=== PATIENT | female | born 1995 | race Caucasian/White ===

== ENCOUNTER 2022-08-06 10:07 | Emergency (ER) | payer OTHER ==
--- NOTE | 2022-08-06 10:09 | ERPHSYRPT ---
- History of Present Illness Time Seen by Provider: 08/06/22 10:08 Historian: patient Exam Limitations: no limitations Physician History: This is a 27-year-old white female who is approximately 16 weeks with a single live intrauterine and presents with epigastric discomfort and burning sensation. She ate spicy foods last evening. She has not had her gallbladder out. She has been vomiting as well. Her pain is in the epigastric area which does radiate into her back. She does have some bloating symptoms. She has not had any vaginal bleeding or rectal bleeding. She has no chest pain and she has no shortness of breath. Timing/Duration: today Activities at Onset: none Quality: burning Abdominal Pain Onset Location: epigastric Pain Radiation: back Severity of Pain-Max: mild Severity of Pain-Current: mild Modifying Factors: Improves With: vomiting Associated Symptoms: nausea, vomiting, No chest pain, No diarrhea, No fever/chills, No headache, No shortness of breath Previous symptoms: no prior history Allergies/Adverse Reactions: No Known Drug Allergies Allergy (Verified 08/06/22 10:19) Travel Risk - International Travel Have you traveled outside of the country in past 3 weeks: No - Coronavirus Screening Are you exhibiting any of the following symptoms?: No Close contact with a COVID-19 positive Pt in past 14-21 Days: No - Review of Systems Constitutional: No Symptoms Eyes: No Symptoms Ears, Nose, & Throat: No Symptoms Respiratory: No Symptoms Cardiac: No Symptoms Abdominal/Gastrointestinal: Abdominal Pain, Nausea, Vomiting, No Diarrhea, No Constipation Genitourinary Symptoms: No Symptoms Musculoskeletal: No Symptoms Skin: No Symptoms Neurological: No Symptoms Psychological: No Symptoms Endocrine: No Symptoms Hematologic/Lymphatic: No Symptoms Immunological/Allergic: No Symptoms All Other Systems: Reviewed and Negative - Past Medical History Neurological History: No Pertinent History Cardiac History: No Pertinent History Respiratory History: No Pertinent History Endocrine Medical History: No Pertinent History Musculoskeletal History: No Pertinent History - Nursing Vital Signs Nursing Vital Signs: Initial Vital Signs Temperature 96.9 F 08/06/22 10:19 Pulse Rate 82 08/06/22 10:19 Respiratory Rate 18 08/06/22 10:19 Blood Pressure 113/55 08/06/22 10:19 O2 Sat by Pulse Oximetry 96 08/06/22 10:19 Pain Scale Pain Intensity 4 - Physical Exam General Appearance: no apparent distress, alert, anxiety, thin Eye Exam: PERRL/EOMI, eyes nml inspection Ears, Nose, Throat Exam: normal ENT inspection, moist mucous membranes Neck Exam: normal inspection, non-tender, supple, full range of motion Respiratory Exam: normal breath sounds, lungs clear, airway intact, No chest tenderness, No respiratory distress Cardiovascular Exam: regular rate/rhythm, normal heart sounds, normal peripheral pulses Gastrointestinal/Abdomen Exam: soft, normal bowel sounds, No tenderness, No guarding, No rebound Pelvic Exam: not done Rectal Exam: not done Back Exam: normal inspection, normal range of motion, No CVA tenderness, No vertebral tenderness Extremity Exam: normal inspection, normal range of motion, pelvis stable Neurologic Exam: alert, oriented x 3, cooperative, 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, normal mood/affect, nml cerebellar function, nml station & gait, sensation nml Skin Exam: normal color, warm, dry Lymphatic Exam: No adenopathy SpO2 Interpretation: normal O2 Delivery: Room Air - Course Nursing assessment & vital signs reviewed: Yes Ordered Tests: Active Orders 24 hr Category Date Time Status IV Insertion STAT Care 08/06/22 10:25 Active AMYLASE Stat Lab 08/06/22 10:40 Received CBC W DIFF Stat Lab 08/06/22 10:40 Completed CMP Stat Lab 08/06/22 10:40 Received CULTURE,URINE Stat Lab 08/06/22 10:45 Received LIPASE Stat Lab 08/06/22 10:40 Received UA W/RFX CULTURE Stat Lab 08/06/22 10:45 Completed Medication Summary Discontinued Medications Generic Name Dose Route Start Last Admin Trade Name Arnold PRN Reason Stop Dose Admin Sodium Chloride 1,000 mls @ 999 mls/hr 08/06/22 10:25 08/06/22 11:50 Sodium Chloride 0.9% 1000 Ml IV 08/06/22 11:25 Infused .Q1H1M STA Infusion Sodium Chloride Confirm 08/06/22 10:44 Sodium Chloride 0.9% 1000 Ml Administered 08/06/22 10:45 Dose 1,000 mls @ ud .ROUTE .STK-MED ONE Ceftriaxone Sodium/Dextrose 1 g in 50 mls @ 100 mls/hr 08/06/22 11:08 08/06/22 11:50 Rocephin 1 Gm-D5w 50 Ml Bag IV 08/06/22 11:37 Infused STAT STA Infusion Ceftriaxone Sodium/Dextrose Confirm 08/06/22 11:13 Rocephin 1 Gm-D5w 50 Ml Bag Administered 08/06/22 11:14 Dose 1 g in 50 mls @ ud IV .STK-MED ONE Ondansetron HCl 4 mg 08/06/22 10:25 08/06/22 10:45 Ondansetron Hcl 4 Mg/2 Ml Vial IV 08/06/22 10:26 4 mg STAT ONE Administration Ondansetron HCl Confirm 08/06/22 10:44 Ondansetron Hcl 4 Mg/2 Ml Vial Administered 08/06/22 10:45 Dose 4 mg .ROUTE .STK-MED ONE Lab/Rad Data: Laboratory Result Diagrams 08/06/22 10:40 08/06/22 11:37 Laboratory Results 08/06/22 08/06/22 08/06/22 Range/Units 11:37 10:45 10:40 WBC 11.1 H (4.0-10.5) x10^3/uL RBC 4.18 (4.1-5.4) x10^6/uL Hgb 12.4 (12.0-16.0) g/dL Hct 36.3 (35-47) % MCV 86.8 (78-100) fL MCH 29.7 (26-32) pg MCHC 34.2 (32-36) g/dL RDW 12.4 (11.5-14.0) % Plt Count 231 (150-450) x10^3/uL MPV 10.6 (7.5-11.0) fL Gran % 71.2 H (36.0-66.0) % Immature Gran % (Auto) 0.3 (0.00-0.4) % Nucleat RBC Rel Count 0.0 (0.00-0.1) % Eos # (Auto) 0.04 (0-0.5) x10^3/uL Immature Gran # (Auto) 0.03 (0.00-0.03) x10^3u/L Absolute Lymphs (auto) 2.29 (1.0-4.6) x10^3/uL Absolute Monos (auto) 0.81 (0.0-1.3) x10^3/uL Absolute Nucleated RBC 0.00 (0.00-0.01) x10^3u/L Lymphocytes % 20.6 L (24.0-44.0) % Monocytes % 7.3 (0.0-12.0) % Eosinophils % 0.4 (0.00-5.0) % Basophils % 0.2 (0.0-0.4) % Absolute Granulocytes 7.95 H (1.4-6.9) x10^3/uL Basophils # 0.02 (0-0.4) x10^3/uL Sodium Direct 136 L (138-146) mmol/L Potassium 3.9 (3.5-4.9) mmol/L Chloride 105 (98-109) mmol/L Carbon Dioxide 23 L (24-29) mmol/L Venous BUN 6 L (8-26) mg/dL Creatinine 0.4 L (0.6-1.3) mg/dL Glucose 96 (70-105) mg/dL Ionized Calcium 1.23 (1.12-1.32) mmol/L Urinalys Dipstick Clnc MAIN LAB Urine Color LT.YELLOW (YELLOW) Urine Appearance HAZY (CLEAR) Urine pH 7.5 (5-6) Ur Specific [place] 1.020 (1.005-1.025) POC Urine Protein Conf NEGATIVE (Negative) Urine Ketones NEGATIVE (NEGATIVE) Urine Nitrite NEGATIVE (NEGATIVE) Urine Bilirubin NEGATIVE (NEGATIVE) Urine Urobilinogen 0.2 (0-1) mg/dL Urine Leukocytes TRACE (NEGATIVE) Urine WBC (Auto) 6-10 (0-5) /HPF Urine RBC (Auto) 0-2 (0-2) /HPF U Epithel Cells (Auto) FEW (FEW) /HPF Urine Bacteria (Auto) FEW (NEGATIVE) /HPF Urine RBC NEGATIVE (0-5) Hector/ul Unidentified Crystals 25-50 (NEGATIVE) /HPF Other Casts (Auto) 2-5 (NEGATIVE) /LPF Urine Mucus (Auto) SLIGHT (NEGATIVE) /HPF Urine Yeast (Budding) Occasional (NEGATIVE) /HPF Ur Culture Indicated? YES Urine Glucose NEGATIVE (NEGATIVE) mg/dL - Departure Departure Disposition: Home Clinical Impression: UTI (urinary tract infection), Epigastric pain Condition: Stable Critical Care Time: No Referrals: DOCTOR,NO FAMILY [NON-STAFF PHY W/O PRIVILEGES] - Follow up/PCP as directed Additional Instructions: Avoid fatty greasy spicy foods. Take your antibiotics as prescribed. 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 Prescriptions: Ondansetron ODT 4 MG [Zofran Odt 4 mg] 4 mg PO Q6H PRN PRN #10 tablet PRN Reason: Vomiting Cephalexin Mh 500 mg [Keflex 500 mg] 500 mg PO TID #21 cap
[2022-08-06] MEDS ORDERED: Sodium Chloride 0.9% 1000 ML 1,000 ML IV STA (10:25)
[2022-08-06] MEDS ORDERED: Zofran 4 MG/2 ML VIAL IV ONE (10:25)
[2022-08-06] MEDS ORDERED: Zofran 4 MG/2 ML VIAL ONE (10:44)
[2022-08-06] MEDS ORDERED: Sodium Chloride 0.9% 1000 ML 1,000 ML ONE (10:44)
[2022-08-06 10:52] LABS: Absolute Neutrophil Ct (ANC) 7.95 x10^3/uL (1.4-6.9); Basophil (Absolute #) 0.02 x10^3/uL (0-0.4); Eosinophil % 0.4 % (0.00-5.0); Eosinophil (Absolute #) 0.04 x10^3/uL (0-0.5); Hematocrit 36.3 % (35-47); Hemoglobin 12.4 g/dL (12.0-16.0); Lymphocyte (Absolute #) 2.29 x10^3/uL (1.0-4.6); Lymphocytes % 20.6 % (24.0-44.0); Mean Cell Volume 86.8 fL (78-100); Mean Corpuscular Hemoglobin 29.7 pg (26-32); Mean Corpuscular Hgb Concent. 34.2 g/dL (32-36); Mean Platelet Volume 10.6 fL (7.5-11.0); Monocyte (Absolute #) 0.81 x10^3/uL (0.0-1.3); Monocytes % 7.3 % (0.0-12.0); Neutrophil % 71.2 % (36.0-66.0); Platelet Count 231 x10^3/uL (150-450); Red Blood Count 4.18 x10^6/uL (4.1-5.4); Red Cell Distribution Width 12.4 % (11.5-14.0); White Blood Count 11.1 x10^3/uL (4.0-10.5)
[2022-08-06 11:00] LABS: Crystals Unidentified 25-50 /HPF (NEGATIVE); Epithelial Cells FEW /HPF (FEW); Mucus SLIGHT /HPF (NEGATIVE); RBC 0-2 /HPF (0-2)
[2022-08-06 11:02] LABS: Appearance HAZY (CLEAR); Bilirubin NEGATIVE (NEGATIVE); Dipstick done @ ? MAIN LAB; Glucose NEGATIVE (NEGATIVE); Ketones NEGATIVE (NEGATIVE); Nitrite NEGATIVE (NEGATIVE); Ph 7.5 (5-6); Protein,Urine Dip NEGATIVE (Negative); RBC NEGATIVE Ery/ul (0-5); Urobilinogen 0.2 mg/dL (0-1)
[2022-08-06 11:04] LABS: Bacteria FEW /HPF (NEGATIVE); Budding Yeast Occasional /HPF (NEGATIVE); Urine Cultured Indicated? YES
[2022-08-06] MEDS ORDERED: ROCEPHIN 1 Gm-D5w 50 ml Bag** 1 G/50 ML IVPB IV STA (11:08)
[2022-08-06] MEDS ORDERED: ROCEPHIN 1 Gm-D5w 50 ml Bag** 1 G/50 ML IVPB IV ONE (11:13)
[2022-08-06 11:50] LABS: ISTAT CREA 0.4 mg/dL (0.6-1.3); ISTAT K 3.9 mmol/L (3.5-4.9)
[2022-08-06 12:13] VITALS: BP 97/57; PULSE 64; O2SAT 98
[2022-08-06 12:51] LABS: ALBUMIN 4.3 g/dL (3.5-5.0); ALKALINE PHOSPHATASE 73 U/L (38-126); AMYLASE 72 U/L (30-110); ANION GAP 12.2 MEQ/L (5-15); BLOOD UREA NITROGEN 6 mg/dL (7-17); CHLORIDE 107 mmol/L (98-107); Calcium 9.2 mg/dL (8.4-10.2); Carbon Dioxide 20 mmol/L (22-30); Creatinine 1 0.41 mg/dL (0.52-1.04); EST GLOMERULAR FILTRATION RATE > 60.0 ML/MIN; Glucose 95 mg/dL (74-106); LIPASE 73 U/L (23-300); SGOT/AST 36 U/L (14-36); SGPT/ALT 12 U/L (0-35); SODIUM 134 mmol/L (137-145); Total Protein 7.9 g/dL (6.3-8.2)
== END 2022-08-06 12:20 | disposition home or self-care (01) ==
LOC: ED 10:07
DX: O23.42 Unspecified infection of urinary tract in pregnancy, second trimester (principal); N39.0 Urinary tract infection, site not specified; Z3A.16 16 weeks gestation of pregnancy; R10.13 Epigastric pain; R11.10 Vomiting, unspecified
CPT/HCPCS: 36000; 36415; 80047; 80053; 81015; 82150; 83690; 85025; 87086; 96365; 96374; 99284; J0696; J2405

== ENCOUNTER 2022-10-18 07:53 | Observation (INO) | payer OTHER ==
[2022-10-18] MEDS ORDERED: TYLENOL 325 MG PO ONE (08:26)
[2022-10-18] MEDS ORDERED: Sodium Chloride 0.9% 1000 ML 1,000 ML IV STA (08:26)
[2022-10-18 08:34] LABS: Absolute Neutrophil Ct (ANC) 9.61 x10^3/uL (1.4-6.9); Basophil (Absolute #) 0.05 x10^3/uL (0-0.4); Eosinophil % 0.8 % (0.00-5.0); Eosinophil (Absolute #) 0.11 x10^3/uL (0-0.5); Hematocrit 31.4 % (35-47); Hemoglobin 10.4 g/dL (12.0-16.0); Lymphocyte (Absolute #) 2.43 x10^3/uL (1.0-4.6); Lymphocytes % 18.2 % (24.0-44.0); Mean Cell Volume 89.7 fL (78-100); Mean Corpuscular Hemoglobin 29.7 pg (26-32); Mean Corpuscular Hgb Concent. 33.1 g/dL (32-36); Mean Platelet Volume 10.3 fL (7.5-11.0); Monocyte (Absolute #) 1.09 x10^3/uL (0.0-1.3); Monocytes % 8.1 % (0.0-12.0); Neutrophil % 71.8 % (36.0-66.0); Platelet Count 231 x10^3/uL (150-450); Red Cell Distribution Width 13.1 % (11.5-14.0); White Blood Count 13.4 x10^3/uL (4.0-10.5)
[2022-10-18 08:39] LABS: Appearance CLEAR (CLEAR); Bilirubin NEGATIVE (NEGATIVE); Glucose NEGATIVE (NEGATIVE); Ketones NEGATIVE (NEGATIVE); Nitrite NEGATIVE (NEGATIVE); Protein,Urine Dip 100 (Negative); RBC SMALL Ery/ul (0-5); Urobilinogen 0.2 mg/dL (0-1)
[2022-10-18 08:40] LABS: RBC 26-50 /HPF (0-2)
[2022-10-18 08:42] LABS: WBC 0-2 /HPF (0-5)
[2022-10-18 08:43] LABS: Bacteria Few /HPF (None Seen); Epithelial Cells Rare /HPF (None Seen); Mucus Rare /HPF (NEGATIVE)
[2022-10-18 08:45] LABS: Urine Cultured Indicated? YES
[2022-10-18 09:00] LABS: ALBUMIN 3.3 g/dL (3.5-5.0); ALKALINE PHOSPHATASE 83 U/L (38-126); ANION GAP 9.3 MEQ/L (5-15); BLOOD UREA NITROGEN 10 mg/dL (7-17); CHLORIDE 110 mmol/L (98-107); Calcium 8.4 mg/dL (8.4-10.2); Carbon Dioxide 20 mmol/L (22-30); Creatinine 1 0.86 mg/dL (0.52-1.04); EST GLOMERULAR FILTRATION RATE > 60.0 ML/MIN; Glucose 88 mg/dL (74-106); Potassium 3.4 mmol/L (3.5-5.1); SGOT/AST 18 U/L (14-36); SGPT/ALT 10 U/L (0-35); SODIUM 135 mmol/L (137-145); Total Protein 6.4 g/dL (6.3-8.2)
[2022-10-18] MEDS ORDERED: TYLENOL 325 MG ONE (09:02)
[2022-10-18] MEDS ORDERED: Sodium Chloride 0.9% 1000 ML 1,000 ML ONE (09:02)
--- NOTE | 2022-10-18 09:24 | XRAY ---
Indication: Right flank pain. Approximately 25 weeks . Two-dimensional renal sonogram performed. Comparison: None Both kidneys normal reniform shape with normal color perfusion. Right kidney measures 13.1 x 5.9 x 6.6 cm and the left measures 11.3 x 5.8 x 4.8 cm. Right kidney is moderately hydronephrotic without suspicious renal mass, calculus, or perinephric fluid. Left kidney is sonographically normal. Cortical medullary differentiation preserved. Urinary bladder normally distended with normal bilateral ureteral jets. Incidental visualization gallbladder demonstrates several tiny gallstones in the dependent portion. Impression: Right hydronephrosis presumed related to . Remaining renal sonogram negative. Incidental cholelithiasis.
--- NOTE | 2022-10-18 10:22 | ERPHSYRPT ---
- History of Present Illness Time Seen by Provider: 10/18/22 07:54 Historian: patient Exam Limitations: no limitations Patient Subjective Stated Complaint: C/O right flank pain, lower abdominal stabbing pain, and burning from periarea. Triage Nursing Assessment: Patient ambulated back to ED without difficulties. She is alert and oriented. No SOB. Urethra swelling noted. LISHA LOWRY. Physician History: 27 years old 2 para 1 at 25 weeks gestation presented in the ER with chief complaint of right flank pain and UTI symptoms for the last few days, was evaluated outpatient, was started on Keflex and she is still having dysuria, mild hematuria and now started to have pain in the lower abdomen sharp and stabbing. She does report having mild vaginal bleeding with very small clots earlier today. She noticed. When RN tried to do In-N-Out cath for urine sample it was noticed that she has periurethral area is raw and irritated. Timing/Duration: day(s) (4), gradual onset, worse Quality: sharpness Abdominal Pain Onset Location: suprapubic, flank Severity of Pain-Max: moderate Severity of Pain-Current: moderate Modifying Factors: Worsens With: movement, palpation, urinating Associated Symptoms: denies symptoms Previous symptoms: no prior history Allergies/Adverse Reactions: No Known Drug Allergies Allergy (Verified 10/18/22 08:08) Home Medications: Cephalexin Mh 500 mg [Keflex 500 mg] 500 mg PO QID 10/18/22 [History] No122/Iron/Folic Acid [ Multi Tablet] 1 tab PO DAILY 10/18/22 [History] Hx Tetanus, Diphtheria Vaccination/Date Given: Yes Hx Influenza Vaccination/Date Given: No Hx Pneumococcal Vaccination/Date Given: No Immunizations Up to Date: Yes Travel Risk - International Travel Have you traveled outside of the country in past 3 weeks: No - Coronavirus Screening Are you exhibiting any of the following symptoms?: No Close contact with a COVID-19 positive Pt in past 14-21 Days: No - Vaccine Status Have you recieved a Covid-19 vaccination: No - Review of Systems Constitutional: No Symptoms Ears, Nose, & Throat: No Symptoms Respiratory: No Symptoms Cardiac: No Symptoms Abdominal/Gastrointestinal: Abdominal Pain Genitourinary Symptoms: Dysuria, Hematuria, Flank Pain, , Vaginal Bleeding Musculoskeletal: No Symptoms Skin: No Symptoms Neurological: No Symptoms Hematologic/Lymphatic: No Symptoms Immunological/Allergic: No Symptoms - Past Medical History Pertinent Past Medical History: Yes Neurological History: No Pertinent History ENT History: No Pertinent History Cardiac History: No Pertinent History Respiratory History: No Pertinent History Endocrine Medical History: No Pertinent History Musculoskeletal History: Fractures Other Medical History: some thyroid issues during this pregancy, hx hypokalemia during - Past Surgical History Past Surgical History: Yes Gastrointestinal: Appendectomy Other Surgical History: right arm fracture repair - Social History Smoking Status: Current every day smoker How long have you smoked: 7 years Exposure to second hand smoke: No Drug Use: none Patient Lives Alone: No - Female History Hx Now: Yes Gestational Age: 26 weeks - Nursing Vital Signs Nursing Vital Signs: Initial Vital Signs Temperature 98 F 10/18/22 08:10 Pulse Rate 82 10/18/22 08:10 Respiratory Rate 18 10/18/22 08:10 Blood Pressure 105/59 10/18/22 08:10 O2 Sat by Pulse Oximetry 97 10/18/22 08:10 Pain Scale Pain Intensity [Right flank] 8 Pain Intensity 6 - Physical Exam General Appearance: no apparent distress, alert Eye Exam: PERRL/EOMI Ears, Nose, Throat Exam: normal ENT inspection, TMs normal Neck Exam: normal inspection, non-tender, supple, full range of motion Respiratory Exam: normal breath sounds, lungs clear Cardiovascular Exam: regular rate/rhythm, normal heart sounds Gastrointestinal/Abdomen Exam: soft, normal bowel sounds, tenderness (Right flank/suprapubic area ) Back Exam: normal inspection, normal range of motion Neurologic Exam: alert, oriented x 3, cooperative Skin Exam: normal color SpO2 Interpretation: normal SpO2: 100 O2 Delivery: Room Air Ordered Tests: Active Orders 24 hr Category Date Time Status IV Insertion STAT Care 10/18/22 08:26 Completed KIDNEY [US] Stat Exams 10/18/22 08:16 Completed CBC W DIFF Stat Lab 10/18/22 08:35 Completed CMP Stat Lab 10/18/22 08:35 Completed CULTURE,URINE Stat Lab 10/18/22 08:30 Received UA W/RFX CULTURE Stat Lab 10/18/22 08:30 Completed Medication Summary Discontinued Medications Generic Name Dose Route Start Last Admin Trade Name Freq PRN Reason Stop Dose Admin Acetaminophen 975 mg 10/18/22 08:26 10/18/22 09:03 Acetaminophen 325 Mg Tablet PO 10/18/22 08:27 975 mg STAT ONE Administration Acetaminophen Confirm 10/18/22 09:02 Acetaminophen 325 Mg Tablet Administered 10/18/22 09:03 Dose 975 mg .ROUTE .STK-MED ONE Sodium Chloride 1,000 mls @ 999 mls/hr 10/18/22 08:26 10/18/22 10:26 Sodium Chloride 0.9% 1000 Ml IV 10/18/22 09:26 Infused .Q1H1M STA Infusion Sodium Chloride Confirm 10/18/22 09:02 Sodium Chloride 0.9% 1000 Ml Administered 10/18/22 09:03 Dose 1,000 mls @ ud .ROUTE .STK-MED ONE Lab/Rad Data: Laboratory Result Diagrams 10/18/22 08:35 10/18/22 08:35 Laboratory Results 10/18/22 10/18/22 10/18/22 Range/Units 08:35 08:35 08:30 WBC 13.4 H (4.0-10.5) x10^3/uL RBC 3.50 L (4.1-5.4) x10^6/uL Hgb 10.4 L (12.0-16.0) g/dL Hct 31.4 L (35-47) % MCV 89.7 (78-100) fL MCH 29.7 (26-32) pg MCHC 33.1 (32-36) g/dL RDW 13.1 (11.5-14.0) % Plt Count 231 (150-450) x10^3/uL MPV 10.3 (7.5-11.0) fL Gran % 71.8 H (36.0-66.0) % Immature Gran % (Auto) 0.7 H (0.00-0.4) % Nucleat RBC Rel Count 0.0 (0.00-0.1) % Eos # (Auto) 0.11 (0-0.5) x10^3/uL Immature Gran # (Auto) 0.09 H (0.00-0.03) x10^3u/L Absolute Lymphs (auto) 2.43 (1.0-4.6) x10^3/uL Absolute Monos (auto) 1.09 (0.0-1.3) x10^3/uL Absolute Nucleated RBC 0.00 (0.00-0.01) x10^3u/L Lymphocytes % 18.2 L (24.0-44.0) % Monocytes % 8.1 (0.0-12.0) % Eosinophils % 0.8 (0.00-5.0) % Basophils % 0.4 (0.0-0.4) % Absolute Granulocytes 9.61 H (1.4-6.9) x10^3/uL Basophils # 0.05 (0-0.4) x10^3/uL Sodium 135 L (137-145) mmol/L Potassium 3.4 L (3.5-5.1) mmol/L Chloride 110 H (98-107) mmol/L Carbon Dioxide 20 L (22-30) mmol/L Anion Gap 9.3 (5-15) MEQ/L BUN 10 (7-17) mg/dL Creatinine 0.86 (0.52-1.04) mg/dL Estimated GFR > 60.0 ML/MIN Glucose 88 (74-106) mg/dL Calcium 8.4 (8.4-10.2) mg/dL Total Bilirubin 0.20 (0.2-1.3) mg/dL AST 18 (14-36) U/L ALT 10 (0-35) U/L Alkaline Phosphatase 83 (38-126) U/L Serum Total Protein 6.4 (6.3-8.2) g/dL Albumin 3.3 L (3.5-5.0) g/dL Urine Color YELLOW (YELLOW) Urine Appearance CLEAR (CLEAR) Urine pH 7.0 (5-6) Ur Specific [place] 1.020 (1.005-1.025) POC Urine Protein Conf 100 A (Negative) Urine Ketones NEGATIVE (NEGATIVE) Urine Nitrite NEGATIVE (NEGATIVE) Urine Bilirubin NEGATIVE (NEGATIVE) Urine Urobilinogen 0.2 (0-1) mg/dL Urine Leukocytes NEGATIVE (NEGATIVE) Urine RBC SMALL A (0-5) Hector/ul Urine Microscopic RBC 26-50 A (0-2) /HPF Urine Microscopic WBC 0-2 (0-5) /HPF Ur Epithelial Cells Rare (None Seen) /HPF Urine Bacteria Few A (None Seen) /HPF Urine Mucus Rare A (NEGATIVE) /HPF Ur Culture Indicated? YES Urine Glucose NEGATIVE (NEGATIVE) mg/dL - Progress Progress: improved, pain not gone completely Progress Note: 10/18/22 10:21 7 years old 2 para 1 at 25 weeks gestation is evaluated in the ER for right flank pain and UTI symptoms. Patient was treated outpatient with Keflex for UTI but now started to have some hematuria. Patient is now complaining of more pain in the right flank and since morning having low abdominal pain and noticed some mild vaginal clots. Does not report any contractions. Good movements as usual. No fever or chills reported. She is given fluid bolus and symptomatic treatment, has a white count of 13, normal kidney functions, no definitive UTI although she has blood in the urine but no nitrites, leukocyte esterase. I do not think patient has pyelonephritis. I have obtained ultrasound which showed some hydronephrosis which is quite common in . Discussed with Dr. Ba primary OB for lower abdominal pain and patient would be taken to OB for further evaluation. Discussed with : Prem Counseled pt/family regarding: lab results, diagnosis, need for follow-up, rad results - Departure Departure Disposition: Home Clinical Impression: Flank pain in patient, Vaginal bleeding in Condition: Stable Critical Care Time: No
[2022-10-18 11:20] VITALS: BP 99/58; PULSE 68
--- NOTE | 2022-10-18 11:38 | XRAY ---
Indication: Evaluate cervical length. Limited OB ultrasound performed to evaluate cervical length. Cervix is closed measuring 4.6 cm in length.
[2022-10-18 22:48] VITALS: O2SAT 100
== END 2022-10-18 12:05 | disposition home or self-care (01) ==
LOC: ED 07:53 → OB 10:15
PROVIDERS: ADMIT Obstetrics & Gynecology; ATTEND Obstetrics & Gynecology
DX: O26.92 Pregnancy related conditions, unspecified, second trimester (principal); Z3A.25 25 weeks gestation of pregnancy; Z20.828 Contact with and (suspected) exposure to other viral communicable diseases
CPT/HCPCS: 36000; 36415; 76770; 76815; 80053; 81015; 85025; 87086; 99283; G0378; A9270-GY

== ENCOUNTER 2022-12-17 11:49 | Observation (INO) | payer OTHER, MEDICAID ==
[2022-12-17 13:12] VITALS: BP 108/64
== END 2022-12-17 12:45 | disposition home or self-care (01) ==
LOC: MED SURG 11:49 → OB 11:50
PROVIDERS: ADMIT Obstetrics & Gynecology; ATTEND Obstetrics & Gynecology
DX: Z34.83 Encounter for supervision of other normal pregnancy, third trimester (principal); Z3A.33 33 weeks gestation of pregnancy
CPT/HCPCS: 59025; 99213; G0378

== ENCOUNTER 2023-01-02 11:14 | Observation (INO) | payer OTHER, MEDICAID ==
[2023-01-02] MEDS: Klor Con PO SCH ×4 (12:10→18:12)
[2023-01-02 18:35] VITALS: O2SAT 99
[2023-01-02 19:59] VITALS: BP 120/57; PULSE 80
[2023-01-02] MEDS ORDERED: K-LYTE PO ONE (20:49)
[2023-01-02] MEDS ORDERED: K-LYTE ONE (20:51)
== END 2023-01-02 23:35 | disposition home or self-care (01) ==
LOC: MED SURG 11:14
PROVIDERS: ADMIT Obstetrics & Gynecology; ATTEND Obstetrics & Gynecology
DX: Z34.83 Encounter for supervision of other normal pregnancy, third trimester (principal); Z3A.36 36 weeks gestation of pregnancy
CPT/HCPCS: 36415; 83735; 84132; G0378; G0379; A9270-GY

== ENCOUNTER 2023-01-21 05:12 | Inpatient (IN) | payer OTHER, MEDICAID ==
[2023-01-21] MEDS ORDERED: Zofran 4 MG/2 ML VIAL IV PRN (15:00)
[2023-01-21] MEDS ORDERED: TYLENOL EXTRA STRENGTH 500 MG PO PRN (15:00)
[2023-01-21] MEDS: CYTOTEC PO SCH ×5 (15:44→23:57)
[2023-01-21 15:55] LABS: Absolute Neutrophil Ct (ANC) 9.49 x10^3/uL (1.4-6.9); BASOPHIL % 0.4 % (0.0-0.4); Basophil (Absolute #) 0.05 x10^3/uL (0-0.4); Eosinophil % 0.6 % (0.00-5.0); Eosinophil (Absolute #) 0.09 x10^3/uL (0-0.5); Hematocrit 30.9 % (35-47); Hemoglobin 9.8 g/dL (12.0-16.0); IMMATURE GRAN # 0.12 x10^3u/L (0.00-0.03); IMMATURE GRAN % 0.9 % (0.00-0.4); Lymphocyte (Absolute #) 3.11 x10^3/uL (1.0-4.6); Lymphocytes % 22.2 % (24.0-44.0); Mean Cell Volume 86.3 fL (78-100); Mean Corpuscular Hemoglobin 27.4 pg (26-32); Mean Corpuscular Hgb Concent. 31.7 g/dL (32-36); Mean Platelet Volume 10.6 fL (7.5-11.0); Monocyte (Absolute #) 1.18 x10^3/uL (0.0-1.3); Monocytes % 8.4 % (0.0-12.0); Neutrophil % 67.5 % (36.0-66.0); Platelet Count 296 x10^3/uL (150-450); Red Blood Count 3.58 x10^6/uL (4.1-5.4)
[2023-01-21 16:16] LABS: Amphetamine,Urine NEGATIVE (NEGATIVE); Barbiturate,Urine NEGATIVE (NEGATIVE); Benzodiazepine,Urine NEGATIVE (NEGATIVE); Cocaine,Urine NEGATIVE (NEGATIVE); Methadone,Urine NEGATIVE (NEGATIVE); Opiate,Urine NEGATIVE (NEGATIVE); PCP,Urine NEGATIVE (NEGATIVE); THC,Urine NEGATIVE (NEGATIVE)
[2023-01-21 16:30] LABS: ABO TYPING O; Antibody Screen NEGATIVE (NEGATIVE); RH TYPING POSITIVE
[2023-01-21] MEDS ORDERED: Lactated Ringers 1,000 ML IV ONE (17:18)
[2023-01-21] MEDS ORDERED: Ephedrine Sulfate 50 MG/ML IV PRN (17:18)
[2023-01-21] MEDS ORDERED: FENTANYL 2 MCG-BUPIV 0.125%-NS 250 ML Epidur 250 ML EPIDURAL SCH (17:30)
[2023-01-21] MEDS ORDERED: XYLOCAINE 1% HCL 20 ML MDV IJ PRN (18:00)
[2023-01-21] MEDS ORDERED: Lactated Ringers 1,000 ML IV SCH (18:30)
[2023-01-21] MEDS: STADOL 2 MG IV PRN (23:10)
[2023-01-22] MEDS: Lactated Ringers 1,000 ML IV SCH ×3 (01:02→21:10)
[2023-01-22] MEDS: PITOCIN 30 UNITS/ LR 500 ML 30 UNITS/500 ML PLAST..BAG IV SCH ×2 (01:02→21:08)
[2023-01-22] MEDS: CYTOTEC PO SCH (01:25)
[2023-01-22] MEDS: STADOL 2 MG IV PRN (04:24)
[2023-01-22] MEDS ORDERED: PITOCIN 30 UNITS/ LR 500 ML 30 UNITS/500 ML PLAST..BAG IV SCH (07:00)
[2023-01-22] MEDS ORDERED: Lactated Ringers 1,000 ML IV ONE (07:00)
[2023-01-22] MEDS ORDERED: Sodium Chloride 0.9% 1000 ML 1,000 ML ONE (09:46)
[2023-01-22] MEDS: Sodium Chloride 0.9% 1000 ML 1,000 ML IV SCH ×2 (09:48→21:09)
[2023-01-22] MEDS ORDERED: TYLENOL EXTRA STRENGTH 500 MG PO PRN (13:10)
[2023-01-22] MEDS ORDERED: Mylicon 80MG PO PRN (13:10)
[2023-01-22] MEDS ORDERED: TUCKS TP PRN (13:10)
[2023-01-22] MEDS ORDERED: Dulcolax 10 MG SUPP PR PRN (13:10)
[2023-01-22] MEDS ORDERED: Adacel Vial IM ONE (13:10)
[2023-01-22] MEDS ORDERED: CORTISONE 1% CREAM TP PRN (13:10)
[2023-01-22] MEDS ORDERED: LANSINOH 40 GM TOP PRN (13:10)
[2023-01-22] MEDS ORDERED: Dermoplast Spray TP PRN (13:10)
[2023-01-22] MEDS: Docusate Sodium 100 MG PO SCH (20:55)
[2023-01-23] MEDS: MOTRIN 400 MG PO PRN ×2 (03:43→16:08)
[2023-01-23 05:21] LABS: Absolute Neutrophil Ct (ANC) 12.32 x10^3/uL (1.4-6.9); BASOPHIL % 0.3 % (0.0-0.4); Basophil (Absolute #) 0.05 x10^3/uL (0-0.4); Eosinophil % 0.7 % (0.00-5.0); Eosinophil (Absolute #) 0.12 x10^3/uL (0-0.5); Hematocrit 30.9 % (35-47); Hemoglobin 9.6 g/dL (12.0-16.0); IMMATURE GRAN # 0.13 x10^3u/L (0.00-0.03); IMMATURE GRAN % 0.7 % (0.00-0.4); Lymphocyte (Absolute #) 3.91 x10^3/uL (1.0-4.6); Lymphocytes % 21.9 % (24.0-44.0); Mean Cell Volume 87.8 fL (78-100); Mean Corpuscular Hemoglobin 27.3 pg (26-32); Mean Corpuscular Hgb Concent. 31.1 g/dL (32-36); Mean Platelet Volume 11.1 fL (7.5-11.0); Monocyte (Absolute #) 1.31 x10^3/uL (0.0-1.3); Monocytes % 7.3 % (0.0-12.0); Neutrophil % 69.1 % (36.0-66.0); Platelet Count 287 x10^3/uL (150-450); Red Blood Count 3.52 x10^6/uL (4.1-5.4); Red Cell Distribution Width 13.2 % (11.5-14.0); White Blood Count 17.8 x10^3/uL (4.0-10.5)
--- NOTE | 2023-01-23 07:43 | PCM.NOTE ---
Date and Time: 01/23/23 0742 Subjective Assessment: ppd 1 sp pt resting in bed and doing well able to ambulate and tolerate diet. vss afebrile abd; soft uterus; firm lochia; mild a/p sp ppd 1 dc home tomorrow fu office in 3 wks OBJECTIVE DATA Vital Signs: Vital Signs - 24 hr Temp Pulse Resp BP BP Pulse Ox 01/23/23 04:00 97.9 F 65 18 104/55 96 01/23/23 00:00 98.1 F 69 17 125/75 98 01/22/23 20:30 98.4 F 82 18 120/66 01/22/23 18:30 97.4 F 77 15 116/72 99 01/22/23 17:00 98.2 F 84 16 119/63 98 01/22/23 15:30 96 H 16 131/76 100 01/22/23 14:30 98.4 F 99 H 18 124/72 100 01/22/23 13:30 98.7 F 82 16 127/67 95 01/22/23 13:15 86 16 127/59 100 01/22/23 13:00 86 18 133/71 96 01/22/23 12:45 98.4 F 84 18 115/79 96 01/22/23 12:30 72 16 118/66 96 01/22/23 12:15 72 16 118/66 96 01/22/23 12:00 72 115/68 97 01/22/23 11:45 72 115/68 97 01/22/23 11:30 64 97 01/22/23 11:15 64 97 01/22/23 11:00 98.4 F 70 18 117/62 01/22/23 10:15 98.4 F 70 18 117/62 01/22/23 10:00 79 18 127/57 100 01/22/23 09:45 80 18 95/50 99 01/22/23 09:30 80 18 95/50 99 01/22/23 09:15 18 111/63 99 01/22/23 09:00 79 20 119/70 100 01/22/23 08:45 68 20 119/70 100 01/22/23 08:30 69 20 96 01/22/23 08:15 66 18 116/58 93 L 01/22/23 08:00 70 18 116/58 93 L 01/22/23 07:45 70 18 116/58 93 L Pain Assessment - Last Documented Pain Intensity [Abdomen] 5 Pain Intensity 0 Pain Scale Used 0-10 Pain Scale Intake and Output: Intake & Output 01/20/23 01/21/23 01/22/23 01/23/23 11:59 11:59 11:59 11:59 Intake Total 2980 1090 Output Total 500 Balance 2980 590 Weight 79.379 kg Lab Results: Lab Results-Last 24 Hours 01/23/23 Range/Units 04:29 WBC 17.8 H (4.0-10.5) x10^3/uL RBC 3.52 L (4.1-5.4) x10^6/uL Hgb 9.6 L (12.0-16.0) g/dL Hct 30.9 L (35-47) % MCV 87.8 (78-100) fL MCH 27.3 (26-32) pg MCHC 31.1 L (32-36) g/dL RDW 13.2 (11.5-14.0) % Plt Count 287 (150-450) x10^3/uL MPV 11.1 H (7.5-11.0) fL Gran % 69.1 H (36.0-66.0) % Immature Gran % (Auto) 0.7 H (0.00-0.4) % Nucleat RBC Rel Count 0.0 (0.00-0.1) % Eos # (Auto) 0.12 (0-0.5) x10^3/uL Immature Gran # (Auto) 0.13 H (0.00-0.03) x10^3u/L Absolute Lymphs (auto) 3.91 (1.0-4.6) x10^3/uL Absolute Monos (auto) 1.31 H (0.0-1.3) x10^3/uL Absolute Nucleated RBC 0.00 (0.00-0.01) x10^3u/L Lymphocytes % 21.9 L (24.0-44.0) % Monocytes % 7.3 (0.0-12.0) % Eosinophils % 0.7 (0.00-5.0) % Basophils % 0.3 (0.0-0.4) % Absolute Granulocytes 12.32 H (1.4-6.9) x10^3/uL Basophils # 0.05 (0-0.4) x10^3/uL Assessment/Plan (1) Vaginal delivery Current Visit: Yes Status: Acute Code(s): O80 - ENCOUNTER FOR FULL-TERM UNCOMPLICATED DELIVERY
--- NOTE | 2023-01-23 07:45 | PCM.DS ---
Discharge Summary Date of Admission: 01/22/23 08:02 Admitting Physician: GULSHAN MEDINA DO Consults: Consults on Case 01/21/23 17:19 Notify Anesthesia Provider PRN 01/22/23 13:11 Notify Physician PRN Primary Care Provider: CANDIS GALLARDO NP Allergies Allergies No Known Drug Allergies Allergy (Verified 10/18/22 08:08) Hospital Summary - Hospital Course Hospital Course: pt admitted on january 21 with oral cytotec induction at 39 wks gestation and subsequently delivered live baby boy via without complication on january 22. during period did well with stable hgb level. pt at this time stable for discharge on january 24. pt advised to fu in office in 3 wks for care. all questions answered to her satisfaction. - Vitals & Intake/Output Vital Signs: Vital Signs Temperature 97.9 F 01/23/23 04:00 Pulse Rate 65 01/23/23 04:00 Respiratory Rate 18 01/23/23 04:00 Blood Pressure 104/55 01/23/23 04:00 O2 Sat by Pulse Oximetry 96 01/23/23 04:00 Intake & Output: Intake & Output 01/20/23 01/21/23 01/22/23 01/23/23 11:59 11:59 11:59 11:59 Intake Total 2980 1090 Output Total 500 Balance 2980 590 Weight 79.379 kg - Lab Result Diagrams: 01/23/23 04:29 Lab Results-Last 24 Hrs: Lab Results-Last 24 Hours 01/23/23 Range/Units 04:29 WBC 17.8 H (4.0-10.5) x10^3/uL RBC 3.52 L (4.1-5.4) x10^6/uL Hgb 9.6 L (12.0-16.0) g/dL Hct 30.9 L (35-47) % MCV 87.8 (78-100) fL MCH 27.3 (26-32) pg MCHC 31.1 L (32-36) g/dL RDW 13.2 (11.5-14.0) % Plt Count 287 (150-450) x10^3/uL MPV 11.1 H (7.5-11.0) fL Gran % 69.1 H (36.0-66.0) % Immature Gran % (Auto) 0.7 H (0.00-0.4) % Nucleat RBC Rel Count 0.0 (0.00-0.1) % Eos # (Auto) 0.12 (0-0.5) x10^3/uL Immature Gran # (Auto) 0.13 H (0.00-0.03) x10^3u/L Absolute Lymphs (auto) 3.91 (1.0-4.6) x10^3/uL Absolute Monos (auto) 1.31 H (0.0-1.3) x10^3/uL Absolute Nucleated RBC 0.00 (0.00-0.01) x10^3u/L Lymphocytes % 21.9 L (24.0-44.0) % Monocytes % 7.3 (0.0-12.0) % Eosinophils % 0.7 (0.00-5.0) % Basophils % 0.3 (0.0-0.4) % Absolute Granulocytes 12.32 H (1.4-6.9) x10^3/uL Basophils # 0.05 (0-0.4) x10^3/uL Final Diagnosis/Problem List - Final Discharge Diagnosis/Problem (1) Vaginal delivery Current Visit: Yes Status: Acute Code(s): O80 - ENCOUNTER FOR FULL-TERM UNCOMPLICATED DELIVERY - Discharge Disposition: Home, Self-Care Condition: Stable Prescriptions: No Action No122/Iron/Folic Acid [ Multi Tablet] 1 tab PO DAILY Valacyclovir HCl [Valtrex] 1,000 mg PO DAILY Follow up with: CANDIS GALLARDO NP [Primary Care Provider] - GULSHAN MEDINA DO [ACTIVE STAFF] - 3 weeks
[2023-01-23] MEDS ORDERED: FERREX 150 PO SCH (10:00)
[2023-01-23] MEDS: Docusate Sodium 100 MG PO SCH ×2 (10:07→23:06)
[2023-01-23 11:52] LABS: HBsAg Screen Negative (Negative)
[2023-01-24 02:19] VITALS: O2SAT 97
[2023-01-24 08:37] VITALS: BP 104/74; PULSE 78
== END 2023-01-24 12:45 | disposition home or self-care (01) | DRG 807 ==
LOC: OB 08:02 → OBSVTOIN 01-22 08:02
PROVIDERS: ADMIT Obstetrics & Gynecology; ATTEND Obstetrics & Gynecology
PROC: 10E0XZZ Delivery of Products of Conception, External Approach (ICD-10-PCS; principal; 2023-01-22)
DX: O80 Encounter for full-term uncomplicated delivery (principal); Z37.0 Single live birth; Z3A.39 39 weeks gestation of pregnancy; Z20.828 Contact with and (suspected) exposure to other viral communicable diseases
CPT/HCPCS: 36415; 59400; 80307; 85025; 86850; 86900; 86901; 87340; 90471; 90715; G0378; J0595; J2590; A9270-GY

== ENCOUNTER 2023-02-15 18:09 | Observation (INO) | payer OTHER, MEDICAID ==
[2023-02-15 18:48] LABS: Absolute Neutrophil Ct (ANC) 8.41 x10^3/uL (1.4-6.9); BASOPHIL % 0.6 % (0.0-0.4); Basophil (Absolute #) 0.08 x10^3/uL (0-0.4); Eosinophil % 0.9 % (0.00-5.0); Eosinophil (Absolute #) 0.11 x10^3/uL (0-0.5); Hematocrit 43.3 % (35-47); Hemoglobin 13.5 g/dL (12.0-16.0); IMMATURE GRAN # 0.03 x10^3u/L (0.00-0.03); IMMATURE GRAN % 0.2 % (0.00-0.4); Lymphocyte (Absolute #) 3.18 x10^3/uL (1.0-4.6); Lymphocytes % 24.8 % (24.0-44.0); Mean Cell Volume 86.9 fL (78-100); Mean Corpuscular Hemoglobin 27.1 pg (26-32); Mean Corpuscular Hgb Concent. 31.2 g/dL (32-36); Mean Platelet Volume 10.6 fL (7.5-11.0); Monocyte (Absolute #) 0.99 x10^3/uL (0.0-1.3); Monocytes % 7.7 % (0.0-12.0); Neutrophil % 65.8 % (36.0-66.0); Platelet Count 323 x10^3/uL (150-450); Red Blood Count 4.98 x10^6/uL (4.1-5.4); Red Cell Distribution Width 13.4 % (11.5-14.0); White Blood Count 12.8 x10^3/uL (4.0-10.5)
[2023-02-15 18:55] LABS: Appearance Turbid (Clear); Bacteria Rare /HPF (None Seen); Bilirubin Negative (Negative); Blood Negative (Negative); Epithelial Cells Few /HPF (None Seen); Glucose, Urine Negative (Negative); Hyaline Casts NONE SEEN /LPF (0-2); Ketones Negative (Negative); Leukocyte Esterase Trace (Negative); Nitrite Negative (Negative); Protein,Urine Dip Negative (Negative); RBC 0-2 /HPF (0-5)
[2023-02-15 19:01] LABS: ADD URINE CULTURE? NO (NO)
[2023-02-15 19:03] LABS: ALBUMIN 4.7 g/dL (3.5-5.0); ALKALINE PHOSPHATASE 113 U/L (38-126); ANION GAP 15.5 MEQ/L (5-15); BLOOD UREA NITROGEN 14 mg/dL (7-17); CHLORIDE 105 mmol/L (98-107); Calcium 9.7 mg/dL (8.4-10.2); Carbon Dioxide 26 mmol/L (22-30); Creatinine 1 0.86 mg/dL (0.52-1.04); EST GLOMERULAR FILTRATION RATE > 60.0 ML/MIN; Glucose 111 mg/dL (74-106); Potassium 3.6 mmol/L (3.5-5.1); SGOT/AST 51 U/L (14-36); SGPT/ALT 59 U/L (0-35); SODIUM 142 mmol/L (137-145); Total Protein 8.9 g/dL (6.3-8.2)
[2023-02-15] MEDS ORDERED: SUBLIMAZE 100 MCG/2 ML IV ONE ×2 (19:36→20:56)
[2023-02-15] MEDS ORDERED: Zofran 4 MG/2 ML VIAL IV ONE (19:36)
[2023-02-15] MEDS ORDERED: Zofran 4 MG/2 ML VIAL ONE (19:38)
[2023-02-15] MEDS ORDERED: SUBLIMAZE 100 MCG/2 ML ONE ×2 (19:39→21:08)
[2023-02-15] MEDS ORDERED: PIPERACILLIN/TAZOBACTAM 3.375 GM in Sodium Chloride 100ML MINI-BAG PLUS 100 ML IV ONE (20:57)
[2023-02-15] MEDS ORDERED: Sodium Chloride 100ML MINI-BAG PLUS 100 ML IV ONE (21:09)
[2023-02-15] MEDS ORDERED: PIPERACILLIN/TAZOBACTAM IV ONE (21:09)
--- NOTE | 2023-02-15 22:49 | XRAY ---
Indication: Epigastric pain. Comparison: None Portable chest demonstrates normal heart and lungs. Bony thorax intact with mild double curvature scoliosis.
--- NOTE | 2023-02-15 23:16 | XRAY ---
CLINICAL HISTORY:Abdominal pain, nausea, vomiting. Epigastric pain; COMPARISON:None; TECHNIQUES:CT scan of the abdomen and pelvis was performed with IV contrast. Coronal and sagittal reconstructive images were also obtained. DLP:1320.24mGy*cm, CTDI: 7.46mGy; FINDINGS: Abdomen. The gallbladder is distended and shows faint mural enhancement with edema. A 7mm linear hyperdensity is seen in the dependent portion of the gallbladder, suggestive of calculus. The liver is of average size. No focal or diffuse parenchymal abnormality. The portal vein, intrahepatic biliary radicals and the bile ducts are normal. The spleen, pancreas, adrenal glands are unremarkable. The kidneys are unremarkable. They are normal in size and shape. No calculi or hydronephrosis. The ascending colon, the transverse colon, the descending colon, visualized small bowel loops are unremarkable. There is evidence of few sub centimetric mesenteric nodes. Pelvis. The urinary bladder is unremarkable. The rectosigmoid colon is unremarkable. The uterus shows an ill-defined hypoenhancing area in the anterior wall, measuring 2.7 x 3.8 cm, possibly uterine fibroid. No evidence of pelvic lymphadenopathy. No definite bony abnormalities could be depicted. IMPRESSION: A 7mm linear hyperdensity is seen in the dependent portion of gallbladder, suggestive of calculus showing faint mural enhancement with edema concerning evolving cholecystitis. Needs ultrasound correlation. An ill-defined hypoenhancing area in the anterior wall of the uterus, likely uterine fibroid. The [place] ER department was called at [phone] at 09:47 PM [employer] TECHNICIAN, 02/15/2023 and ED Physician was informed of the significant medical report. Electronically Signed by: Livier Prasad MD. (02/15/2023 21:55:28 [employer] TECHNICIAN)
--- NOTE | 2023-02-15 23:18 | XRAY ---
CLINICAL HISTORY:Pulmonary embolism; COMPARISON:None; TECHNIQUES:Axial CT study of the chest was done with IV contrast and with sagittal and coronal reformats; FINDINGS: The scanned pulmonary parenchyma shows no definite consolidative lesions. No free or encysted pleural effusion. Heart size is normal, and there is no pericardial effusion. No pathologically enlarged mediastinal, hilar or axillary lymph node identified. There is no definite mass lesion in the chest wall. The bony skeletal reveals no definite abnormality. IMPRESSION: No significant abnormality detected in CT chest. Electronically Signed by: Livier Prasad MD. (02/15/2023 22:00:54 SENIOR DIRECTOR MARKETING)
--- NOTE | 2023-02-16 00:48 | ERPHSYRPT ---
- History of Present Illness Historian: patient Exam Limitations: no limitations Patient Subjective Stated Complaint: here for epigstric pain sudden onset today, states pain goes through her back, no fever, no vomiting, pt is 3 weeks post vaginal delivery Triage Nursing Assessment: pt alert, resp easy, restless holding abd, abd soft, skin w/d/p. has slight vaginal bleeding, no clots Physician History: C/o abdominal pain that started 1.5 hours [employer] Location: RUQ, radiates to back Constant Described as: sharp, pressure, 8.5/10 Worsens with food. Endorses nausea and vomiting but denies fever, chills, constipation, dysuria, vaginal discharge or vaginal bleeding. 3 weeks ago w/o complication Timing/Duration: hour(s) (1.5) Activities at Onset: rest Quality: pressure, sharpness Abdominal Pain Onset Location: RUQ Pain Radiation: back Severity of Pain-Max: severe Severity of Pain-Current: severe Modifying Factors: Improves With: analgesics. Worsens With: eating, movement, palpation, vomiting Associated Symptoms: loss of appetite, nausea, vomiting, No chest pain, No diaphoresis, No fever/chills Previous symptoms: no prior history Allergies/Adverse Reactions: No Known Drug Allergies Allergy (Verified 02/15/23 18:30) Home Medications: No Reportable Medications [No Reported Medications] 02/15/23 [History] Hx Tetanus, Diphtheria Vaccination/Date Given: No Hx Influenza Vaccination/Date Given: No Hx Pneumococcal Vaccination/Date Given: No Immunizations Up to Date: Yes Travel Risk - International Travel Have you traveled outside of the country in past 3 weeks: No - Coronavirus Screening Are you exhibiting any of the following symptoms?: No Close contact with a COVID-19 positive Pt in past 14-21 Days: No - Vaccine Status Have you recieved a Covid-19 vaccination: No - Review of Systems Constitutional: No Symptoms Eyes: No Symptoms Ears, Nose, & Throat: No Symptoms Respiratory: No Symptoms Cardiac: No Symptoms Abdominal/Gastrointestinal: Abdominal Pain, Nausea, Vomiting, Hematemesis, Hematochezia, Appetite Changes Genitourinary Symptoms: No Symptoms Musculoskeletal: No Symptoms Skin: No Symptoms Neurological: Dizziness Psychological: No Symptoms Endocrine: No Symptoms Hematologic/Lymphatic: No Symptoms Immunological/Allergic: No Symptoms All Other Systems: Reviewed and Negative - Past Medical History Pertinent Past Medical History: Yes Neurological History: No Pertinent History ENT History: No Pertinent History Cardiac History: No Pertinent History Respiratory History: No Pertinent History Endocrine Medical History: No Pertinent History Musculoskeletal History: Fractures Other Medical History: some thyroid issues during this pregancy, hx hypokalemia during - Past Surgical History Past Surgical History: Yes Gastrointestinal: Appendectomy Other Surgical History: L arm fracture repair - Social History Smoking Status: Current every day smoker How long have you smoked: 4 ys Exposure to second hand smoke: Yes Drug Use: none Patient Lives Alone: No - Female History Hx Last Menstrual Period: 2021 Hx Now: No - Nursing Vital Signs Nursing Vital Signs: Initial Vital Signs Blood Pressure 120/69 02/15/23 18:30 O2 Sat by Pulse Oximetry 99 02/15/23 18:30 Pain Scale Pain Intensity 5 - Physical Exam General Appearance: moderate distress Eye Exam: eyes nml inspection Ears, Nose, Throat Exam: normal ENT inspection Neck Exam: normal inspection, non-tender, supple, full range of motion Respiratory Exam: normal breath sounds, lungs clear, airway intact, No chest tenderness, No respiratory distress Cardiovascular Exam: normal heart sounds, tachycardia, capillary refill <2 sec, No edema Gastrointestinal/Abdomen Exam: soft, normal bowel sounds, tenderness (RUQ), guarding, No distention, No rebound SpO2: 94 Ordered Tests: Active Orders 24 hr Category Date Time Status Global Logistics Manager STAT Care 02/15/23 18:39 Active EKG-ER Only STAT Care 02/15/23 18:39 Active IV Insertion STAT Care 02/15/23 18:39 Active Pulse Oximetry (ED) STAT Care 02/15/23 18:39 Active ABDOMEN AND PELVIS W CONTRAST [CT] Stat Exams 02/15/23 19:35 Completed CHEST 1 VIEW (PORTABLE) Stat Exams 02/15/23 18:37 Completed CHEST WITH CONTRAST [CT] Stat Exams 02/15/23 19:35 Completed CBC W DIFF Stat Lab 02/15/23 18:46 Completed CMP Stat Lab 02/15/23 18:46 Completed D-DIMER QUANTITATIVE Stat Lab 02/15/23 18:46 Completed LIPASE Stat Lab 02/15/23 23:30 Completed UA W/RFX UR CULTURE Stat Lab 02/15/23 18:46 Completed Transfer Order Routine Transfer 02/16/23 Ordered Medication Summary Discontinued Medications Generic Name Dose Route Start Last Admin Trade Name Freq PRN Reason Stop Dose Admin Fentanyl Citrate 25 mcg 02/15/23 19:36 02/15/23 19:40 Fentanyl Citrate 100 Mcg/2 Ml* Vial IV 02/15/23 19:37 25 mcg STAT ONE Administration Fentanyl Citrate Confirm 02/15/23 19:39 Fentanyl Citrate 100 Mcg/2 Ml* Vial Administered 02/15/23 19:40 Dose 100 mcg .ROUTE .STK-MED ONE Fentanyl Citrate 25 mcg 02/15/23 20:56 02/15/23 21:13 Fentanyl Citrate 100 Mcg/2 Ml* Vial IV 02/15/23 20:57 25 mcg STAT ONE Administration Fentanyl Citrate Confirm 02/15/23 21:08 Fentanyl Citrate 100 Mcg/2 Ml* Vial Administered 02/15/23 21:09 Dose 100 mcg .ROUTE .STK-MED ONE Piperacillin Sod/Tazobactam 100 mls @ 200 mls/hr 02/15/23 20:57 02/15/23 21:14 Sod 3.375 gm/ Sodium Chloride IV 02/15/23 21:26 200 mls/hr STAT ONE Administration Sodium Chloride Confirm 02/15/23 21:09 Sodium Chloride 100ml Mini-Bag Plus Administered 02/15/23 21:10 Dose 100 mls @ ud IV .STK-MED ONE Ketorolac Tromethamine 30 mg 02/16/23 01:28 02/16/23 01:30 Ketorolac Tromethamine 30 Mg/Ml Inj IV 02/16/23 01:29 30 mg STAT ONE Administration Ondansetron HCl 4 mg 02/15/23 19:36 02/15/23 19:40 Ondansetron Hcl 4 Mg/2 Ml Vial IV 02/15/23 19:37 4 mg STAT ONE Administration Ondansetron HCl Confirm 02/15/23 19:38 Ondansetron Hcl 4 Mg/2 Ml Vial Administered 02/15/23 19:39 Dose 4 mg .ROUTE .STK-MED ONE Piperacillin Sod/Tazobactam Sod Confirm 02/15/23 21:09 Piperacillin/Tazobactam Sodium 3.375 Gm Vial Administered 02/15/23 21:10 Dose 3.375 gm IV .STK-MED ONE Lab/Rad Data: Laboratory Result Diagrams 02/15/23 18:46 02/15/23 18:46 Laboratory Results 02/15/23 02/15/23 02/15/23 Range/Units 23:30 18:46 18:46 WBC (4.0-10.5) x10^3/uL RBC (4.1-5.4) x10^6/uL Hgb (12.0-16.0) g/dL Hct (35-47) % MCV (78-100) fL MCH (26-32) pg MCHC (32-36) g/dL RDW (11.5-14.0) % Plt Count (150-450) x10^3/uL MPV (7.5-11.0) fL Gran % (36.0-66.0) % Immature Gran % (Auto) (0.00-0.4) % Nucleat RBC Rel Count (0.00-0.1) % Eos # (Auto) (0-0.5) x10^3/uL Immature Gran # (Auto) (0.00-0.03) x10^3u/L Absolute Lymphs (auto) (1.0-4.6) x10^3/uL Absolute Monos (auto) (0.0-1.3) x10^3/uL Absolute Nucleated RBC (0.00-0.01) x10^3u/L Lymphocytes % (24.0-44.0) % Monocytes % (0.0-12.0) % Eosinophils % (0.00-5.0) % Basophils % (0.0-0.4) % Absolute Granulocytes (1.4-6.9) x10^3/uL Basophils # (0-0.4) x10^3/uL D-Dimer 0.96 H* (0.0-0.50) mg/L Sodium (137-145) mmol/L Potassium (3.5-5.1) mmol/L Chloride (98-107) mmol/L Carbon Dioxide (22-30) mmol/L Anion Gap (5-15) MEQ/L BUN (7-17) mg/dL Creatinine (0.52-1.04) mg/dL Estimated GFR ML/MIN Glucose (74-106) mg/dL Calcium (8.4-10.2) mg/dL Total Bilirubin (0.2-1.3) mg/dL AST (14-36) U/L ALT (0-35) U/L Alkaline Phosphatase (38-126) U/L Serum Total Protein (6.3-8.2) g/dL Albumin (3.5-5.0) g/dL Lipase 159 (23-300) U/L Urine Color Yellow (Yellow) Urine Appearance Turbid A (Clear) Urine pH 7.0 (4.6-8.0) Ur Specific [place] 1.020 (1.005-1.030) Urine Protein Negative (Negative) Urine Glucose (UA) Negative (Negative) mg/dL Urine Ketones Negative (Negative) Urine Blood Negative (Negative) Urine Nitrite Negative (Negative) Urine Bilirubin Negative (Negative) Urine Urobilinogen 1.0 A (0.2) mg/dL Ur Leukocyte Esterase Trace A (Negative) U Hyaline Cast (Auto) NONE SEEN (0-2) /LPF Urine Microscopic RBC 0-2 (0-5) /HPF Urine Microscopic WBC 6-10 A (0-5) /HPF Ur Epithelial Cells Few (None Seen) /HPF Urine Bacteria Rare A (None Seen) /HPF Urine Culture Reflexed NO (NO) 02/15/23 02/15/23 Range/Units 18:46 18:46 WBC 12.8 H (4.0-10.5) x10^3/uL RBC 4.98 (4.1-5.4) x10^6/uL Hgb 13.5 (12.0-16.0) g/dL Hct 43.3 (35-47) % MCV 86.9 (78-100) fL MCH 27.1 (26-32) pg MCHC 31.2 L (32-36) g/dL RDW 13.4 (11.5-14.0) % Plt Count 323 (150-450) x10^3/uL MPV 10.6 (7.5-11.0) fL Gran % 65.8 (36.0-66.0) % Immature Gran % (Auto) 0.2 (0.00-0.4) % Nucleat RBC Rel Count 0.0 (0.00-0.1) % Eos # (Auto) 0.11 (0-0.5) x10^3/uL Immature Gran # (Auto) 0.03 (0.00-0.03) x10^3u/L Absolute Lymphs (auto) 3.18 (1.0-4.6) x10^3/uL Absolute Monos (auto) 0.99 (0.0-1.3) x10^3/uL Absolute Nucleated RBC 0.00 (0.00-0.01) x10^3u/L Lymphocytes % 24.8 (24.0-44.0) % Monocytes % 7.7 (0.0-12.0) % Eosinophils % 0.9 (0.00-5.0) % Basophils % 0.6 (0.0-0.4) % Absolute Granulocytes 8.41 H (1.4-6.9) x10^3/uL Basophils # 0.08 (0-0.4) x10^3/uL D-Dimer (0.0-0.50) mg/L Sodium 142 (137-145) mmol/L Potassium 3.6 (3.5-5.1) mmol/L Chloride 105 (98-107) mmol/L Carbon Dioxide 26 (22-30) mmol/L Anion Gap 15.5 H (5-15) MEQ/L BUN 14 (7-17) mg/dL Creatinine 0.86 (0.52-1.04) mg/dL Estimated GFR > 60.0 ML/MIN Glucose 111 H (74-106) mg/dL Calcium 9.7 (8.4-10.2) mg/dL Total Bilirubin 0.40 (0.2-1.3) mg/dL AST 51 H (14-36) U/L ALT 59 H (0-35) U/L Alkaline Phosphatase 113 (38-126) U/L Serum Total Protein 8.9 H (6.3-8.2) g/dL Albumin 4.7 (3.5-5.0) g/dL Lipase (23-300) U/L Urine Color (Yellow) Urine Appearance (Clear) Urine pH (4.6-8.0) Ur Specific [place] (1.005-1.030) Urine Protein (Negative) Urine Glucose (UA) (Negative) mg/dL Urine Ketones (Negative) Urine Blood (Negative) Urine Nitrite (Negative) Urine Bilirubin (Negative) Urine Urobilinogen (0.2) mg/dL Ur Leukocyte Esterase (Negative) U Hyaline Cast (Auto) (0-2) /LPF Urine Microscopic RBC (0-5) /HPF Urine Microscopic WBC (0-5) /HPF Ur Epithelial Cells (None Seen) /HPF Urine Bacteria (None Seen) /HPF Urine Culture Reflexed (NO) - Progress Progress: pain not gone completely Progress Note: No sepsis. Hemodynamically stable without signs of perforation/gangrene. Admit for supportive care, pain control, IV fluids and antibiotics. NPO for cholecystectomy in AM. Appreciate surgery consultation and recommendations. Discussed with Dr.: Other (Jaydon Terrell) Will see patient in: hospital (observation) Counseled pt/family regarding: lab results, diagnosis, rad results Medical Desision Making - Discussion of managment Care discussed with:: specialist Reviewed:: Test results Agreed on:: Treatment plan, place in obs Will see patient: in hospital - Diagnostic Testing Diagnostic test were ordered, analyzed, and reviewed by me: Yes Radiological Interpretation: Reviewed by me, Teleradiologist Report - Risk of complications The pt has a mod risk of morbidity or mortality based on: Need for major surgery in otherwise healthy patient - Departure Departure Disposition: Observation Clinical Impression: Acute calculous cholecystitis Condition: Stable Critical Care Time: No Referrals: DOCTOR,NO FAMILY [Primary Care Provider] - Follow up/PCP as directed Instructions: Gallstones
[2023-02-16] MEDS ORDERED: TORAdol 30 mg Injection IV ONE (01:28)
[2023-02-16] MEDS ORDERED: TORAdol 30 mg Injection ONE ×2 (01:29→14:56)
[2023-02-16] MEDS ORDERED: MORPHINE SULFATE 2 MG INJ IV PRN (02:06)
[2023-02-16] MEDS ORDERED: Zofran 4 MG/2 ML VIAL IV PRN (02:06)
[2023-02-16] MEDS: Sodium Chloride 0.9% 1000 ML 1,000 ML IV SCH ×2 (02:53→16:28)
--- NOTE | 2023-02-16 03:40 | PCM.HP ---
History of Present Illness - Chief Complaint Chief Complaint: Estephania Date: 02/16/23 History of Present Illness: Ms. Ngo is a 27 year-old female, who is 3 weeks , and is presenting with abominal pain. She admits to one day of symptoms - dull pain; constant; 6-7/10; mid epigastric. Upon arrival to [place], her laboratory data revealed a mildly elevated WBC count and LFTs, and a UTI, while imaging was suggestive of evolving cholecystitis. On my examination, she is comfortable currently denying any fevers, chills, nausea, vomiting, diarrhea, syncope, presyncope, visual changes, orthopnea, PND, odynophagia, dysphagia, chest pain, shortness of breath, dysuria, hematuria, melena, hematochezia, or neurological changes. All other systems were reviewed and were negative. - Review of Systems Constitutional: Other ( PER HPI) Medications & Allergies Home Medications: Home Medication List No Reportable Medications [No Reported Medications] 02/15/23 [History Confirmed 02/15/23] Allergies/Adverse Reactions: Allergies Allergy/AdvReac Type Severity Reaction Status Date / Time No Known Drug Allergies Allergy Verified 02/15/23 18:30 - Past Medical History Past Medical History: No Neurological History: No Pertinent History ENT History: No Pertinent History Cardiac History: No Pertinent History Respiratory History: No Pertinent History Endocrine Medical History: No Pertinent History Musculoskelatal History: Fractures GI Medical History: No Pertinent History History: No Pertinent History Pyscho-Social History: Depression Reproductive Disorders: No Pertinent History Comment: Hx Post depression 3 years ago. LUE - arm fracture February 2022. - Female History Hx Last Menstrual Period: 2021 Are you now?: No - Past Surgical History Past Surgical History: No Neuro Surgical History: No Pertinent History Cardiac History: No Pertinent History Respiratory Surgery: No Pertinent History GI Surgical History: Appendectomy Genitourinary Surgical Hx: No Pertinent History Musculskeletal Surgical Hx: No Pertinent History Female Surgical History: No Pertinent History Other Surgical History: L arm fracture repair - Social History Smoking Status: Current every day smoker How long have you smoked: 5 years Exposure to second hand smoke: No Alcohol: None Drug Use: none - Physical Exam Vital Signs: Vital Signs - 24 hr Temp Pulse Resp BP BP Pulse Ox 02/16/23 02:22 97.7 F 55 L 18 84/47 94 L 02/16/23 01:32 94 L 02/16/23 01:00 53 L 117/69 117/69 99 02/16/23 00:59 109/74 96 02/16/23 00:10 89/49 94 L 02/16/23 00:02 82/51 97 02/16/23 00:00 58 L 88/41 89/49 99 02/15/23 23:00 108/64 97 02/15/23 22:20 56 L 110/60 96 02/15/23 22:19 96 02/15/23 22:08 99 02/15/23 22:00 56 L 110/60 96 02/15/23 21:00 88/53 02/15/23 20:00 123/79 02/15/23 19:53 123/73 97 02/15/23 19:52 98 02/15/23 19:10 79 123/73 96 02/15/23 19:02 92 L 02/15/23 18:57 98 02/15/23 18:35 62 18 120/69 100 02/15/23 18:30 120/69 99 General Appearance: no apparent distress Neurologic Exam: alert, oriented x 3 Eye Exam: PERRL/EOMI Ears, Nose, Throat Exam: normal ENT inspection Neck Exam: normal inspection Respiratory Exam: normal breath sounds Cardiovascular Exam: regular rate/rhythm Gastrointestinal/Abdomen Exam: other (TTP) Pelvic Exam: not done Rectal Exam: deferred Back Exam: normal inspection Extremity Exam: normal inspection Skin Exam: normal color Results - Labs Lab/Micro Results: Lab Results-Last 24 Hours 02/15/23 02/15/23 02/15/23 Range/Units 18:46 18:46 18:46 WBC 12.8 H (4.0-10.5) x10^3/uL RBC 4.98 (4.1-5.4) x10^6/uL Hgb 13.5 (12.0-16.0) g/dL Hct 43.3 (35-47) % MCV 86.9 (78-100) fL MCH 27.1 (26-32) pg MCHC 31.2 L (32-36) g/dL RDW 13.4 (11.5-14.0) % Plt Count 323 (150-450) x10^3/uL MPV 10.6 (7.5-11.0) fL Gran % 65.8 (36.0-66.0) % Immature Gran % (Auto) 0.2 (0.00-0.4) % Nucleat RBC Rel Count 0.0 (0.00-0.1) % Eos # (Auto) 0.11 (0-0.5) x10^3/uL Immature Gran # (Auto) 0.03 (0.00-0.03) x10^3u/L Absolute Lymphs (auto) 3.18 (1.0-4.6) x10^3/uL Absolute Monos (auto) 0.99 (0.0-1.3) x10^3/uL Absolute Nucleated RBC 0.00 (0.00-0.01) x10^3u/L Lymphocytes % 24.8 (24.0-44.0) % Monocytes % 7.7 (0.0-12.0) % Eosinophils % 0.9 (0.00-5.0) % Basophils % 0.6 (0.0-0.4) % Absolute Granulocytes 8.41 H (1.4-6.9) x10^3/uL Basophils # 0.08 (0-0.4) x10^3/uL D-Dimer 0.96 H* (0.0-0.50) mg/L Sodium 142 (137-145) mmol/L Potassium 3.6 (3.5-5.1) mmol/L Chloride 105 (98-107) mmol/L Carbon Dioxide 26 (22-30) mmol/L Anion Gap 15.5 H (5-15) MEQ/L BUN 14 (7-17) mg/dL Creatinine 0.86 (0.52-1.04) mg/dL Estimated GFR > 60.0 ML/MIN Glucose 111 H (74-106) mg/dL Calcium 9.7 (8.4-10.2) mg/dL Total Bilirubin 0.40 (0.2-1.3) mg/dL AST 51 H (14-36) U/L ALT 59 H (0-35) U/L Alkaline Phosphatase 113 (38-126) U/L Serum Total Protein 8.9 H (6.3-8.2) g/dL Albumin 4.7 (3.5-5.0) g/dL Lipase (23-300) U/L Urine Color (Yellow) Urine Appearance (Clear) Urine pH (4.6-8.0) Ur Specific [place] (1.005-1.030) Urine Protein (Negative) Urine Glucose (UA) (Negative) mg/dL Urine Ketones (Negative) Urine Blood (Negative) Urine Nitrite (Negative) Urine Bilirubin (Negative) Urine Urobilinogen (0.2) mg/dL Ur Leukocyte Esterase (Negative) U Hyaline Cast (Auto) (0-2) /LPF Urine Microscopic RBC (0-5) /HPF Urine Microscopic WBC (0-5) /HPF Ur Epithelial Cells (None Seen) /HPF Urine Bacteria (None Seen) /HPF Urine Culture Reflexed (NO) 02/15/23 02/15/23 Range/Units 18:46 23:30 WBC (4.0-10.5) x10^3/uL RBC (4.1-5.4) x10^6/uL Hgb (12.0-16.0) g/dL Hct (35-47) % MCV (78-100) fL MCH (26-32) pg MCHC (32-36) g/dL RDW (11.5-14.0) % Plt Count (150-450) x10^3/uL MPV (7.5-11.0) fL Gran % (36.0-66.0) % Immature Gran % (Auto) (0.00-0.4) % Nucleat RBC Rel Count (0.00-0.1) % Eos # (Auto) (0-0.5) x10^3/uL Immature Gran # (Auto) (0.00-0.03) x10^3u/L Absolute Lymphs (auto) (1.0-4.6) x10^3/uL Absolute Monos (auto) (0.0-1.3) x10^3/uL Absolute Nucleated RBC (0.00-0.01) x10^3u/L Lymphocytes % (24.0-44.0) % Monocytes % (0.0-12.0) % Eosinophils % (0.00-5.0) % Basophils % (0.0-0.4) % Absolute Granulocytes (1.4-6.9) x10^3/uL Basophils # (0-0.4) x10^3/uL D-Dimer (0.0-0.50) mg/L Sodium (137-145) mmol/L Potassium (3.5-5.1) mmol/L Chloride (98-107) mmol/L Carbon Dioxide (22-30) mmol/L Anion Gap (5-15) MEQ/L BUN (7-17) mg/dL Creatinine (0.52-1.04) mg/dL Estimated GFR ML/MIN Glucose (74-106) mg/dL Calcium (8.4-10.2) mg/dL Total Bilirubin (0.2-1.3) mg/dL AST (14-36) U/L ALT (0-35) U/L Alkaline Phosphatase (38-126) U/L Serum Total Protein (6.3-8.2) g/dL Albumin (3.5-5.0) g/dL Lipase 159 (23-300) U/L Urine Color Yellow (Yellow) Urine Appearance Turbid A (Clear) Urine pH 7.0 (4.6-8.0) Ur Specific [place] 1.020 (1.005-1.030) Urine Protein Negative (Negative) Urine Glucose (UA) Negative (Negative) mg/dL Urine Ketones Negative (Negative) Urine Blood Negative (Negative) Urine Nitrite Negative (Negative) Urine Bilirubin Negative (Negative) Urine Urobilinogen 1.0 A (0.2) mg/dL Ur Leukocyte Esterase Trace A (Negative) U Hyaline Cast (Auto) NONE SEEN (0-2) /LPF Urine Microscopic RBC 0-2 (0-5) /HPF Urine Microscopic WBC 6-10 A (0-5) /HPF Ur Epithelial Cells Few (None Seen) /HPF Urine Bacteria Rare A (None Seen) /HPF Urine Culture Reflexed NO (NO) - Radiology Impressions Radiology Exams & Impressions: Radiology Procedures Category Date Time Status ABDOMEN AND PELVIS W CONTRAST [CT] Stat Exams 02/15/23 19:35 Completed CHEST 1 VIEW (PORTABLE) Stat Exams 02/15/23 18:37 Completed CHEST WITH CONTRAST [CT] Stat Exams 02/15/23 19:35 Completed Assessment/Plan (1) Acute calculous cholecystitis Current Visit: Yes Status: Acute Assessment & Plan: ASSESSMENT 1. Acute Cholecystitis 2. Urinary Tract Infection 3. Mild Transaminitis PLAN 1. Zosyn 2. Fluids 3. Antiemetics 4. Analgesics 5. NPO for surgery in AM SCDs The entirety of this encounter was done via telemedicine Chet Interiano MD Pulmonary and Critical Care Medicine Code(s): K80.00 - CALCULUS OF GALLBLADDER W ACUTE CHOLECYST W/O OBSTRUCTION Telemedicine Encounter - Telemedicine Encounter Telemedicine Encounter: The entirety of this encounter was performed via Telemedicine"
[2023-02-16] MEDS ORDERED: PIPERACILLIN/TAZOBACTAM IV ONE ×4 (05:16→06:14)
[2023-02-16] MEDS ORDERED: Sodium Chloride 100ML MINI-BAG PLUS 100 ML IV ONE ×2 (05:18→06:21)
[2023-02-16 06:21] LABS: Absolute Neutrophil Ct (ANC) 5.25 x10^3/uL (1.4-6.9); BASOPHIL % 0.4 % (0.0-0.4); Basophil (Absolute #) 0.04 x10^3/uL (0-0.4); Eosinophil % 0.8 % (0.00-5.0); Eosinophil (Absolute #) 0.07 x10^3/uL (0-0.5); Hematocrit 38.9 % (35-47); Hemoglobin 11.9 g/dL (12.0-16.0); IMMATURE GRAN # 0.03 x10^3u/L (0.00-0.03); IMMATURE GRAN % 0.3 % (0.00-0.4); Lymphocyte (Absolute #) 2.59 x10^3/uL (1.0-4.6); Mean Corpuscular Hemoglobin 26.9 pg (26-32); Mean Corpuscular Hgb Concent. 30.6 g/dL (32-36); Mean Platelet Volume 10.4 fL (7.5-11.0); Monocyte (Absolute #) 0.94 x10^3/uL (0.0-1.3); Monocytes % 10.5 % (0.0-12.0); Platelet Count 249 x10^3/uL (150-450); Red Blood Count 4.42 x10^6/uL (4.1-5.4); Red Cell Distribution Width 13.4 % (11.5-14.0); White Blood Count 8.9 x10^3/uL (4.0-10.5)
[2023-02-16] MEDS: PIPERACILLIN/TAZOBACTAM 3.375 GM in Sodium Chloride 100ML MINI-BAG PLUS 100 ML IV SCH ×2 (06:26→12:50)
[2023-02-16 06:42] LABS: ALBUMIN 3.8 g/dL (3.5-5.0); ALKALINE PHOSPHATASE 189 U/L (38-126); ANION GAP 12.8 MEQ/L (5-15); BLOOD UREA NITROGEN 12 mg/dL (7-17); CHLORIDE 108 mmol/L (98-107); Calcium 8.7 mg/dL (8.4-10.2); Carbon Dioxide 23 mmol/L (22-30); EST GLOMERULAR FILTRATION RATE > 60.0 ML/MIN; Glucose 104 mg/dL (74-106); Potassium 3.7 mmol/L (3.5-5.1); SGOT/AST 394 U/L (14-36); SGPT/ALT 196 U/L (0-35); SODIUM 140 mmol/L (137-145); Total Protein 7.1 g/dL (6.3-8.2)
[2023-02-16 12:49] LABS: HCG SERUM TEST NEGATIVE (NEGATIVE)
[2023-02-16] MEDS ORDERED: Lactated Ringers 1,000 ML IV SCH (13:30)
[2023-02-16] MEDS ORDERED: MEFOXIN 2 GM PREMIX** 2 GM/50 ML ML IV SCH (13:30)
[2023-02-16] MEDS ORDERED: Decadron 4 MG INJ ONE (13:38)
[2023-02-16] MEDS ORDERED: DIPRIVAN 200 MG/20 ML IV ONE (13:38)
[2023-02-16] MEDS ORDERED: Zemuron 100 MG/10 ML ONE (13:38)
[2023-02-16] MEDS ORDERED: Versed 2 MG/2 ML Injection ONE (13:38)
[2023-02-16] MEDS ORDERED: SUBLIMAZE 100 MCG/2 ML ONE ×2 (13:38→14:46)
[2023-02-16] MEDS ORDERED: Sensorcaine 0.25% 10 ML ONE (13:44)
[2023-02-16] MEDS ORDERED: Zofran 4 MG/2 ML VIAL ONE (14:56)
[2023-02-16] MEDS ORDERED: BRIDION 200MG/2ML IV ONE (14:58)
[2023-02-16] MEDS ORDERED: Compazine 10 MG/2 ML ONE (15:32)
--- NOTE | 2023-02-16 17:20 | PCM.SSS ---
History of Present Illness - Chief Complaint Chief Complaint: Estephania History of Present Illness: is a 27 year old female admitted with ruq pain, concern for cholecystitis, had uncomplicated lap choley with Dr Dickens today, wbc normalized after admission. surgery okayed for discharge, she is taking po and pain is well controlled. - Review of Systems Constitutional: No Fever, No Chills Respiratory: No Cough, No Short Of Breath Cardiac: No Chest Pain, No Edema, No Syncope Abdominal/Gastrointestinal: Abdominal Pain, No Nausea, No Vomiting Skin: No Rash All Other Systems: Reviewed and Negative Medications & Allergies Home Medications: Home Medication List Amox Tr/Potass Clav. 500 mg [Augmentin 500-125 Tablet] 500 mg PO BID #14 tablet 02/16/23 [Rx] Hydrocodone/Acetaminophen [Hydrocodone-Acetamin 7.5-325] 1 each PO Q6H PRN PRN #20 tablet MDD 4 02/16/23 [Rx] Allergies/Adverse Reactions: Allergies Allergy/AdvReac Type Severity Reaction Status Date / Time No Known Drug Allergies Allergy Verified 02/15/23 18:30 - Past Medical History Past Medical History: No Neurological History: No Pertinent History ENT History: No Pertinent History Cardiac History: No Pertinent History Respiratory History: No Pertinent History Endocrine Medical History: No Pertinent History Musculoskelatal History: Fractures GI Medical History: No Pertinent History History: No Pertinent History Pyscho-Social History: Depression Reproductive Disorders: No Pertinent History Comment: Hx Post depression 3 years ago. LUE - arm fracture February 2022. - Female History Hx Last Menstrual Period: 2021 Are you now?: No - Past Surgical History Past Surgical History: No Neuro Surgical History: No Pertinent History Cardiac History: No Pertinent History Respiratory Surgery: No Pertinent History GI Surgical History: Appendectomy Genitourinary Surgical Hx: No Pertinent History Musculskeletal Surgical Hx: No Pertinent History Female Surgical History: No Pertinent History Other Surgical History: L arm fracture repair - Social History Smoking Status: Current every day smoker How long have you smoked: 5 years Exposure to second hand smoke: No Alcohol: None Drug Use: none - Physical Exam Vital Signs: Vital Signs - 24 hr Temp Pulse Resp BP BP Pulse Ox 02/16/23 17:00 97.3 F 53 L 18 106/56 93 L 02/16/23 16:45 97.3 F 45 L 18 98/58 97 02/16/23 16:30 97.3 F 52 L 18 99/58 95 02/16/23 16:15 97.3 F 48 L 16 96/51 95 02/16/23 13:03 97.8 F 51 L 18 98/52 95 02/16/23 11:21 97.8 F 51 L 18 98/52 95 02/16/23 09:30 98.2 F 58 L 18 106/51 95 02/16/23 02:22 97.7 F 55 L 18 84/47 94 L 02/16/23 01:32 94 L 02/16/23 01:00 53 L 117/69 117/69 99 02/16/23 00:59 109/74 96 02/16/23 00:10 89/49 94 L 02/16/23 00:02 82/51 97 02/16/23 00:00 58 L 88/41 89/49 99 02/15/23 23:00 108/64 97 02/15/23 22:20 56 L 110/60 96 02/15/23 22:19 96 02/15/23 22:08 99 02/15/23 22:00 56 L 110/60 96 02/15/23 21:00 88/53 02/15/23 20:00 123/79 02/15/23 19:53 123/73 97 02/15/23 19:52 98 02/15/23 19:10 79 123/73 96 02/15/23 19:02 92 L 02/15/23 18:57 98 02/15/23 18:35 62 18 120/69 100 02/15/23 18:30 120/69 99 General Appearance: no apparent distress, alert Neurologic Exam: alert, oriented x 3 Respiratory Exam: normal breath sounds, lungs clear, No respiratory distress Cardiovascular Exam: regular rate/rhythm, normal heart sounds, normal peripheral pulses Gastrointestinal/Abdomen Exam: soft, other (port site dressings clean, dry intact. abdomen soft, bowel sounds present) Wound Assessment: Skin/Wound Assessment Wound/Incision Assessment Start: 02/16/23 02:15 Text: Status: Active Freq: Q6H Protocol: Document 02/16/23 14:00 AR (Rec: 02/16/23 16:32 AR [id number]) Wound/Incision Assessment Abdomen Wound Assessment Shift Assessment Dressing Status Dry & Intact Comment LAP SITES, CDI Results - Labs Lab/Micro Results: Lab Results-Last 24 Hours 02/15/23 02/15/23 02/15/23 Range/Units 18:46 18:46 18:46 WBC 12.8 H (4.0-10.5) x10^3/uL RBC 4.98 (4.1-5.4) x10^6/uL Hgb 13.5 (12.0-16.0) g/dL Hct 43.3 (35-47) % MCV 86.9 (78-100) fL MCH 27.1 (26-32) pg MCHC 31.2 L (32-36) g/dL RDW 13.4 (11.5-14.0) % Plt Count 323 (150-450) x10^3/uL MPV 10.6 (7.5-11.0) fL Gran % 65.8 (36.0-66.0) % Immature Gran % (Auto) 0.2 (0.00-0.4) % Nucleat RBC Rel Count 0.0 (0.00-0.1) % Eos # (Auto) 0.11 (0-0.5) x10^3/uL Immature Gran # (Auto) 0.03 (0.00-0.03) x10^3u/L Absolute Lymphs (auto) 3.18 (1.0-4.6) x10^3/uL Absolute Monos (auto) 0.99 (0.0-1.3) x10^3/uL Absolute Nucleated RBC 0.00 (0.00-0.01) x10^3u/L Lymphocytes % 24.8 (24.0-44.0) % Monocytes % 7.7 (0.0-12.0) % Eosinophils % 0.9 (0.00-5.0) % Basophils % 0.6 (0.0-0.4) % Absolute Granulocytes 8.41 H (1.4-6.9) x10^3/uL Basophils # 0.08 (0-0.4) x10^3/uL D-Dimer 0.96 H* (0.0-0.50) mg/L Sodium 142 (137-145) mmol/L Potassium 3.6 (3.5-5.1) mmol/L Chloride 105 (98-107) mmol/L Carbon Dioxide 26 (22-30) mmol/L Anion Gap 15.5 H (5-15) MEQ/L BUN 14 (7-17) mg/dL Creatinine 0.86 (0.52-1.04) mg/dL Estimated GFR > 60.0 ML/MIN Glucose 111 H (74-106) mg/dL Calcium 9.7 (8.4-10.2) mg/dL Total Bilirubin 0.40 (0.2-1.3) mg/dL AST 51 H (14-36) U/L ALT 59 H (0-35) U/L Alkaline Phosphatase 113 (38-126) U/L Serum Total Protein 8.9 H (6.3-8.2) g/dL Albumin 4.7 (3.5-5.0) g/dL Lipase (23-300) U/L Serum HCG, Qual (NEGATIVE) Urine Color (Yellow) Urine Appearance (Clear) Urine pH (4.6-8.0) Ur Specific [place] (1.005-1.030) Urine Protein (Negative) Urine Glucose (UA) (Negative) mg/dL Urine Ketones (Negative) Urine Blood (Negative) Urine Nitrite (Negative) Urine Bilirubin (Negative) Urine Urobilinogen (0.2) mg/dL Ur Leukocyte Esterase (Negative) U Hyaline Cast (Auto) (0-2) /LPF Urine Microscopic RBC (0-5) /HPF Urine Microscopic WBC (0-5) /HPF Ur Epithelial Cells (None Seen) /HPF Urine Bacteria (None Seen) /HPF Urine Culture Reflexed (NO) 02/15/23 02/15/23 02/16/23 Range/Units 18:46 23:30 05:45 WBC (4.0-10.5) x10^3/uL RBC (4.1-5.4) x10^6/uL Hgb (12.0-16.0) g/dL Hct (35-47) % MCV (78-100) fL MCH (26-32) pg MCHC (32-36) g/dL RDW (11.5-14.0) % Plt Count (150-450) x10^3/uL MPV (7.5-11.0) fL Gran % (36.0-66.0) % Immature Gran % (Auto) (0.00-0.4) % Nucleat RBC Rel Count (0.00-0.1) % Eos # (Auto) (0-0.5) x10^3/uL Immature Gran # (Auto) (0.00-0.03) x10^3u/L Absolute Lymphs (auto) (1.0-4.6) x10^3/uL Absolute Monos (auto) (0.0-1.3) x10^3/uL Absolute Nucleated RBC (0.00-0.01) x10^3u/L Lymphocytes % (24.0-44.0) % Monocytes % (0.0-12.0) % Eosinophils % (0.00-5.0) % Basophils % (0.0-0.4) % Absolute Granulocytes (1.4-6.9) x10^3/uL Basophils # (0-0.4) x10^3/uL D-Dimer (0.0-0.50) mg/L Sodium (137-145) mmol/L Potassium (3.5-5.1) mmol/L Chloride (98-107) mmol/L Carbon Dioxide (22-30) mmol/L Anion Gap (5-15) MEQ/L BUN (7-17) mg/dL Creatinine (0.52-1.04) mg/dL Estimated GFR ML/MIN Glucose (74-106) mg/dL Calcium (8.4-10.2) mg/dL Total Bilirubin (0.2-1.3) mg/dL AST (14-36) U/L ALT (0-35) U/L Alkaline Phosphatase (38-126) U/L Serum Total Protein (6.3-8.2) g/dL Albumin (3.5-5.0) g/dL Lipase 159 (23-300) U/L Serum HCG, Qual NEGATIVE (NEGATIVE) Urine Color Yellow (Yellow) Urine Appearance Turbid A (Clear) Urine pH 7.0 (4.6-8.0) Ur Specific [place] 1.020 (1.005-1.030) Urine Protein Negative (Negative) Urine Glucose (UA) Negative (Negative) mg/dL Urine Ketones Negative (Negative) Urine Blood Negative (Negative) Urine Nitrite Negative (Negative) Urine Bilirubin Negative (Negative) Urine Urobilinogen 1.0 A (0.2) mg/dL Ur Leukocyte Esterase Trace A (Negative) U Hyaline Cast (Auto) NONE SEEN (0-2) /LPF Urine Microscopic RBC 0-2 (0-5) /HPF Urine Microscopic WBC 6-10 A (0-5) /HPF Ur Epithelial Cells Few (None Seen) /HPF Urine Bacteria Rare A (None Seen) /HPF Urine Culture Reflexed NO (NO) 02/16/23 02/16/23 Range/Units 06:00 06:14 WBC 8.9 (4.0-10.5) x10^3/uL RBC 4.42 (4.1-5.4) x10^6/uL Hgb 11.9 L (12.0-16.0) g/dL Hct 38.9 (35-47) % MCV 88.0 (78-100) fL MCH 26.9 (26-32) pg MCHC 30.6 L (32-36) g/dL RDW 13.4 (11.5-14.0) % Plt Count 249 (150-450) x10^3/uL MPV 10.4 (7.5-11.0) fL Gran % 59.0 (36.0-66.0) % Immature Gran % (Auto) 0.3 (0.00-0.4) % Nucleat RBC Rel Count 0.0 (0.00-0.1) % Eos # (Auto) 0.07 (0-0.5) x10^3/uL Immature Gran # (Auto) 0.03 (0.00-0.03) x10^3u/L Absolute Lymphs (auto) 2.59 (1.0-4.6) x10^3/uL Absolute Monos (auto) 0.94 (0.0-1.3) x10^3/uL Absolute Nucleated RBC 0.00 (0.00-0.01) x10^3u/L Lymphocytes % 29.0 (24.0-44.0) % Monocytes % 10.5 (0.0-12.0) % Eosinophils % 0.8 (0.00-5.0) % Basophils % 0.4 (0.0-0.4) % Absolute Granulocytes 5.25 (1.4-6.9) x10^3/uL Basophils # 0.04 (0-0.4) x10^3/uL D-Dimer (0.0-0.50) mg/L Sodium 140 (137-145) mmol/L Potassium 3.7 (3.5-5.1) mmol/L Chloride 108 H (98-107) mmol/L Carbon Dioxide 23 (22-30) mmol/L Anion Gap 12.8 (5-15) MEQ/L BUN 12 (7-17) mg/dL Creatinine 0.70 (0.52-1.04) mg/dL Estimated GFR > 60.0 ML/MIN Glucose 104 (74-106) mg/dL Calcium 8.7 (8.4-10.2) mg/dL Total Bilirubin 1.50 H (0.2-1.3) mg/dL AST 394 H (14-36) U/L ALT 196 H (0-35) U/L Alkaline Phosphatase 189 H (38-126) U/L Serum Total Protein 7.1 (6.3-8.2) g/dL Albumin 3.8 (3.5-5.0) g/dL Lipase (23-300) U/L Serum HCG, Qual (NEGATIVE) Urine Color (Yellow) Urine Appearance (Clear) Urine pH (4.6-8.0) Ur Specific [place] (1.005-1.030) Urine Protein (Negative) Urine Glucose (UA) (Negative) mg/dL Urine Ketones (Negative) Urine Blood (Negative) Urine Nitrite (Negative) Urine Bilirubin (Negative) Urine Urobilinogen (0.2) mg/dL Ur Leukocyte Esterase (Negative) U Hyaline Cast (Auto) (0-2) /LPF Urine Microscopic RBC (0-5) /HPF Urine Microscopic WBC (0-5) /HPF Ur Epithelial Cells (None Seen) /HPF Urine Bacteria (None Seen) /HPF Urine Culture Reflexed (NO) - Radiology Impressions Radiology Exams & Impressions: Radiology Procedures Category Date Time Status ABDOMEN AND PELVIS W CONTRAST [CT] Stat Exams 02/15/23 19:35 Completed CHEST 1 VIEW (PORTABLE) Stat Exams 02/15/23 18:37 Completed CHEST WITH CONTRAST [CT] Stat Exams 02/15/23 19:35 Completed Assessment/Plan (1) Acute calculous cholecystitis Current Visit: Yes Status: Acute Assessment & Plan: ok to discharge to home Code(s): K80.00 - CALCULUS OF GALLBLADDER W ACUTE CHOLECYST W/O OBSTRUCTION Hospital Summary - Vitals & Intake/Output Vital Signs: Vital Signs Temperature 97.3 F 02/16/23 17:00 Pulse Rate 53 L 02/16/23 17:00 Respiratory Rate 18 02/16/23 17:00 Blood Pressure 106/56 02/16/23 17:00 O2 Sat by Pulse Oximetry 93 L 02/16/23 17:00 Intake & Output: Intake & Output 02/14/23 02/15/23 02/16/23 02/17/23 11:59 11:59 11:59 11:59 Intake Total 0 0 Balance 0 0 Weight 74.6 kg 74.6 kg - Lab Result Diagrams: 02/16/23 06:00 02/16/23 06:14 Lab Results-Last 24 Hrs: Lab Results-Last 24 Hours 02/15/23 02/15/23 02/15/23 Range/Units 18:46 18:46 18:46 WBC 12.8 H (4.0-10.5) x10^3/uL RBC 4.98 (4.1-5.4) x10^6/uL Hgb 13.5 (12.0-16.0) g/dL Hct 43.3 (35-47) % MCV 86.9 (78-100) fL MCH 27.1 (26-32) pg MCHC 31.2 L (32-36) g/dL RDW 13.4 (11.5-14.0) % Plt Count 323 (150-450) x10^3/uL MPV 10.6 (7.5-11.0) fL Gran % 65.8 (36.0-66.0) % Immature Gran % (Auto) 0.2 (0.00-0.4) % Nucleat RBC Rel Count 0.0 (0.00-0.1) % Eos # (Auto) 0.11 (0-0.5) x10^3/uL Immature Gran # (Auto) 0.03 (0.00-0.03) x10^3u/L Absolute Lymphs (auto) 3.18 (1.0-4.6) x10^3/uL Absolute Monos (auto) 0.99 (0.0-1.3) x10^3/uL Absolute Nucleated RBC 0.00 (0.00-0.01) x10^3u/L Lymphocytes % 24.8 (24.0-44.0) % Monocytes % 7.7 (0.0-12.0) % Eosinophils % 0.9 (0.00-5.0) % Basophils % 0.6 (0.0-0.4) % Absolute Granulocytes 8.41 H (1.4-6.9) x10^3/uL Basophils # 0.08 (0-0.4) x10^3/uL D-Dimer 0.96 H* (0.0-0.50) mg/L Sodium 142 (137-145) mmol/L Potassium 3.6 (3.5-5.1) mmol/L Chloride 105 (98-107) mmol/L Carbon Dioxide 26 (22-30) mmol/L Anion Gap 15.5 H (5-15) MEQ/L BUN 14 (7-17) mg/dL Creatinine 0.86 (0.52-1.04) mg/dL Estimated GFR > 60.0 ML/MIN Glucose 111 H (74-106) mg/dL Calcium 9.7 (8.4-10.2) mg/dL Total Bilirubin 0.40 (0.2-1.3) mg/dL AST 51 H (14-36) U/L ALT 59 H (0-35) U/L Alkaline Phosphatase 113 (38-126) U/L Serum Total Protein 8.9 H (6.3-8.2) g/dL Albumin 4.7 (3.5-5.0) g/dL Lipase (23-300) U/L Serum HCG, Qual (NEGATIVE) Urine Color (Yellow) Urine Appearance (Clear) Urine pH (4.6-8.0) Ur Specific [place] (1.005-1.030) Urine Protein (Negative) Urine Glucose (UA) (Negative) mg/dL Urine Ketones (Negative) Urine Blood (Negative) Urine Nitrite (Negative) Urine Bilirubin (Negative) Urine Urobilinogen (0.2) mg/dL Ur Leukocyte Esterase (Negative) U Hyaline Cast (Auto) (0-2) /LPF Urine Microscopic RBC (0-5) /HPF Urine Microscopic WBC (0-5) /HPF Ur Epithelial Cells (None Seen) /HPF Urine Bacteria (None Seen) /HPF Urine Culture Reflexed (NO) 02/15/23 02/15/23 02/16/23 Range/Units 18:46 23:30 05:45 WBC (4.0-10.5) x10^3/uL RBC (4.1-5.4) x10^6/uL Hgb (12.0-16.0) g/dL Hct (35-47) % MCV (78-100) fL MCH (26-32) pg MCHC (32-36) g/dL RDW (11.5-14.0) % Plt Count (150-450) x10^3/uL MPV (7.5-11.0) fL Gran % (36.0-66.0) % Immature Gran % (Auto) (0.00-0.4) % Nucleat RBC Rel Count (0.00-0.1) % Eos # (Auto) (0-0.5) x10^3/uL Immature Gran # (Auto) (0.00-0.03) x10^3u/L Absolute Lymphs (auto) (1.0-4.6) x10^3/uL Absolute Monos (auto) (0.0-1.3) x10^3/uL Absolute Nucleated RBC (0.00-0.01) x10^3u/L Lymphocytes % (24.0-44.0) % Monocytes % (0.0-12.0) % Eosinophils % (0.00-5.0) % Basophils % (0.0-0.4) % Absolute Granulocytes (1.4-6.9) x10^3/uL Basophils # (0-0.4) x10^3/uL D-Dimer (0.0-0.50) mg/L Sodium (137-145) mmol/L Potassium (3.5-5.1) mmol/L Chloride (98-107) mmol/L Carbon Dioxide (22-30) mmol/L Anion Gap (5-15) MEQ/L BUN (7-17) mg/dL Creatinine (0.52-1.04) mg/dL Estimated GFR ML/MIN Glucose (74-106) mg/dL Calcium (8.4-10.2) mg/dL Total Bilirubin (0.2-1.3) mg/dL AST (14-36) U/L ALT (0-35) U/L Alkaline Phosphatase (38-126) U/L Serum Total Protein (6.3-8.2) g/dL Albumin (3.5-5.0) g/dL Lipase 159 (23-300) U/L Serum HCG, Qual NEGATIVE (NEGATIVE) Urine Color Yellow (Yellow) Urine Appearance Turbid A (Clear) Urine pH 7.0 (4.6-8.0) Ur Specific [place] 1.020 (1.005-1.030) Urine Protein Negative (Negative) Urine Glucose (UA) Negative (Negative) mg/dL Urine Ketones Negative (Negative) Urine Blood Negative (Negative) Urine Nitrite Negative (Negative) Urine Bilirubin Negative (Negative) Urine Urobilinogen 1.0 A (0.2) mg/dL Ur Leukocyte Esterase Trace A (Negative) U Hyaline Cast (Auto) NONE SEEN (0-2) /LPF Urine Microscopic RBC 0-2 (0-5) /HPF Urine Microscopic WBC 6-10 A (0-5) /HPF Ur Epithelial Cells Few (None Seen) /HPF Urine Bacteria Rare A (None Seen) /HPF Urine Culture Reflexed NO (NO) 02/16/23 02/16/23 Range/Units 06:00 06:14 WBC 8.9 (4.0-10.5) x10^3/uL RBC 4.42 (4.1-5.4) x10^6/uL Hgb 11.9 L (12.0-16.0) g/dL Hct 38.9 (35-47) % MCV 88.0 (78-100) fL MCH 26.9 (26-32) pg MCHC 30.6 L (32-36) g/dL RDW 13.4 (11.5-14.0) % Plt Count 249 (150-450) x10^3/uL MPV 10.4 (7.5-11.0) fL Gran % 59.0 (36.0-66.0) % Immature Gran % (Auto) 0.3 (0.00-0.4) % Nucleat RBC Rel Count 0.0 (0.00-0.1) % Eos # (Auto) 0.07 (0-0.5) x10^3/uL Immature Gran # (Auto) 0.03 (0.00-0.03) x10^3u/L Absolute Lymphs (auto) 2.59 (1.0-4.6) x10^3/uL Absolute Monos (auto) 0.94 (0.0-1.3) x10^3/uL Absolute Nucleated RBC 0.00 (0.00-0.01) x10^3u/L Lymphocytes % 29.0 (24.0-44.0) % Monocytes % 10.5 (0.0-12.0) % Eosinophils % 0.8 (0.00-5.0) % Basophils % 0.4 (0.0-0.4) % Absolute Granulocytes 5.25 (1.4-6.9) x10^3/uL Basophils # 0.04 (0-0.4) x10^3/uL D-Dimer (0.0-0.50) mg/L Sodium 140 (137-145) mmol/L Potassium 3.7 (3.5-5.1) mmol/L Chloride 108 H (98-107) mmol/L Carbon Dioxide 23 (22-30) mmol/L Anion Gap 12.8 (5-15) MEQ/L BUN 12 (7-17) mg/dL Creatinine 0.70 (0.52-1.04) mg/dL Estimated GFR > 60.0 ML/MIN Glucose 104 (74-106) mg/dL Calcium 8.7 (8.4-10.2) mg/dL Total Bilirubin 1.50 H (0.2-1.3) mg/dL AST 394 H (14-36) U/L ALT 196 H (0-35) U/L Alkaline Phosphatase 189 H (38-126) U/L Serum Total Protein 7.1 (6.3-8.2) g/dL Albumin 3.8 (3.5-5.0) g/dL Lipase (23-300) U/L Serum HCG, Qual (NEGATIVE) Urine Color (Yellow) Urine Appearance (Clear) Urine pH (4.6-8.0) Ur Specific [place] (1.005-1.030) Urine Protein (Negative) Urine Glucose (UA) (Negative) mg/dL Urine Ketones (Negative) Urine Blood (Negative) Urine Nitrite (Negative) Urine Bilirubin (Negative) Urine Urobilinogen (0.2) mg/dL Ur Leukocyte Esterase (Negative) U Hyaline Cast (Auto) (0-2) /LPF Urine Microscopic RBC (0-5) /HPF Urine Microscopic WBC (0-5) /HPF Ur Epithelial Cells (None Seen) /HPF Urine Bacteria (None Seen) /HPF Urine Culture Reflexed (NO) - Radiology Exams Ordered Rad Exams-Entire Visit: Radiology Procedures Category Date Time Status ABDOMEN AND PELVIS W CONTRAST [CT] Stat Exams 02/15/23 19:35 Completed CHEST 1 VIEW (PORTABLE) Stat Exams 02/15/23 18:37 Completed CHEST WITH CONTRAST [CT] Stat Exams 02/15/23 19:35 Completed - Discharge Disposition: Home, Self-Care Condition: Stable Prescriptions: New Amox Tr/Potass Clav. 500 mg [Augmentin 500-125 Tablet] 500 mg PO BID #14 tablet Hydrocodone/Acetaminophen [Hydrocodone-Acetamin 7.5-325] 1 each PO Q6H PRN PRN #20 tablet MDD 4 PRN Reason: Pain Follow up with: DAVI DICKENS [ACTIVE STAFF] - 2 weeks
[2023-02-16 17:24] VITALS: O2SAT 97
[2023-02-16 17:32] VITALS: BP 107/60; PULSE 51
[2023-02-16] MEDS ORDERED: NORCO 5/325 MG PO PRN (17:33)
[2023-02-16] MEDS ORDERED: NORCO 5/325 MG ONE (17:35)
--- NOTE | 2023-02-18 08:28 | OP ---
SURGERY DATE/TIME: 02/16/2023 1424 PREOPERATIVE DIAGNOSIS: Acute cholecystitis/cholelithiasis. POSTOPERATIVE DIAGNOSIS: Acute cholecystitis/cholelithiasis. PROCEDURE: Laparoscopic cholecystectomy. SURGEON: Dr. Kj Dickens. ANESTHESIA: General endotracheal tube. COMPLICATIONS: None. CONDITION: Stable. INDICATIONS: The patient is symptomatic disease. DESCRIPTION OF PROCEDURE AND FINDINGS: Taken to surgery. General anesthetic, routine prep and drape. Veress needle inserted. Opening pressure of 1, insufflating pressure 14. Four - 5's placed, good visualization. Cystic duct defined. Cystic artery defined. Both structures triply clipped and transected. Clips noted across and well approximated. Gallbladder rolled out of gallbladder fossa. The gallbladder delivered through epigastric port with slight widening. Hole closure device was used. The field was clean. CO2 was exsufflated. Skin closed with belen. The patient tolerated the procedure satisfactorily.
== END 2023-02-16 17:58 | disposition home or self-care (01) ==
LOC: ED 18:09 → MED SURG 02-16 02:00
PROVIDERS: ADMIT Internal Medicine Critical Care Medicine; ATTEND Family Medicine
DX: K80.00 Calculus of gallbladder with acute cholecystitis without obstruction (principal); N39.0 Urinary tract infection, site not specified; D72.829 Elevated white blood cell count, unspecified; Z20.828 Contact with and (suspected) exposure to other viral communicable diseases; Z72.0 Tobacco use
CPT/HCPCS: 36000; 36415; 47562; 71045; 71260; 74177; 80053; 81001; 83690; 84703; 85025; 85379; 93005; 93041; 94760; 96365; 96374; 96375; 96376; 99285; G0378; J0694; J1100; J1885; J2250; J2405; J2704; J3010; A9270-GY